=== PATIENT | male | born 1985 | race Caucasian/White ===

== ENCOUNTER 2025-04-03 18:37 | Emergency (ER) | payer MEDICARE, MEDICAID, SELFPAY ==
[2025-04-03 18:37] VITALS: BP 145/97; PULSE 157; RESP 40; TEMP 37; O2SAT 100; BMI 25.1
--- NOTE | 2025-04-03 18:50 | EKG12_ITS ---
Test Reason : DYSRHYTHMIA Blood Pressure : */* mmHG Vent. Rate : 122 BPM Atrial Rate : 122 BPM P-R Int : 150 ms QRS Dur : 98 ms QT Int : 282 ms P-R-T Axes : 56 44 42 degrees QTcB Int : 401 ms Sinus tachycardia Otherwise normal ECG Confirmed by SIDDHARTHA TRIPP, EDY ([id number]), assignment editor VANIA OSEI ([id number]) on 04/07/2025 6:30:51 AM Referred By: Confirmed By: EDY CARL MD
--- NOTE | 2025-04-03 18:51 | EX.ED.DYSGE1 ---
HPI History of Present Illness Chief Complaint: Overdose Detail of Chief Complaint: Illicit drug use Informant: patient Narrative Narrative: Patient presents to the emergency department after using what he thought was methamphetamines that he snorted a line out. This occurred about an hour and 20 minutes ago. He feels like his heart is racing and he is got some chest tightness. He thought his pupils looked weird and his right 1 was not reactive. Denies falls or injuries. He states he had been clean from any drug use for about 2 years or so. Drinks alcohol occasionally. Patient is a smoker. [facility] Medical History (Updated 04/03/25 @ 21:[address] Navi Ramirez, DO) Chest pain Hypertension Schizoaffective disorder Bipolar disorder Allergy/AdvReac Type Severity Reaction Status Date / Time sulfamethoxazole (From Allergy Severe Anaphylaxis Verified 04/03/25 18:41 Bactrim) trimethoprim (From Bactrim) Allergy Severe Anaphylaxis Verified 04/03/25 18:41 Social History Smoking Status: Current some day smoker tobacco type: cigarettes ROS ROS ED Review of Systems ROS Unobtainable: other Constitutional Constitutional ED: Reports lethargy; Denies chills, fever(s), sweats or weight loss Eyes Eyes: Denies blurry vision, change in vision or diplopia ENT ENT ED: Denies rhinorrhea or sore throat Cardiovascular Cardiovascular: Reports chest pain and racing heartbeat; Denies orthopnea Respiratory/Chest Respiratory/Chest: Reports dyspnea; Denies cough, dyspnea on exertion, orthopnea or sputum Gastrointestinal Gastrointestinal: Denies abdominal pain, diarrhea, nausea or vomiting Genitourinary Genitourinary ED: Denies dysuria, hematuria or urinary frequency Musculoskeletal Musculoskeletal: Denies arthralgias, back pain, myalgias or neck pain Integumentary Denies abscess, Abrasions or rash Neurologic Neurologic: Denies headache(s) or weakness Psychiatric Psychiatric: Denies anxiety, depression or suicidal thoughts Endocrine Endocrinology: Denies polydipsia, polyphagia or polyuria Hematologic/Lymphatic Hematologic/Lymphatic: Denies easy bleeding, easy bruising or lymphadenopathy Allergic/Immunologic Allergic/Immunologic ED: Denies mouth swelling, tongue swelling or urticaria EXAM Physical Exam Const Vital Signs: 04/03/25 18:37 Temperature 98.6 F Temperature Source Oral Pulse Rate 157 H Respiratory Rate 40 H Blood Pressure 145/97 H Blood Pressure Mean 113 Pulse Ox 100 Oxygen Delivery Method Room Air Positive well nourished and well developed General Appearance ED: well developed and NAD HEENT Reports TM's clear and moist mucous membranes HEENT Narrative: Dilated pupils bilaterally at 6 mm and reactive. normocephalic and atraumatic; Negative for trauma or tenderness Tympanic Membrane ED: Yes TM's clear Eyes PERRL and EOMs intact bilaterally General Eye ED: Negative for pale conjunctiva or scleral icterus Neck no lymphadenopathy, supple and no JVD General: Negative for tenderness Chest Wall inspection of chest normal and palpation of chest normal Chest: Negative for tenderness Resp normal respiratory effort and clear to auscultation bilaterally Effort and Inspection: Negative for respiratory distress or pain with movement Auscultation: Negative for rhonchi, wheezes or diminished lung sounds Cardio regular rhythm, S1 normal heart sound, S2 normal heart sound and no murmurs; Negative for regular rate Rate: tachycardic Peripheral Pulses: pulses 2+ throughout GI normal to inspection, nondistended, normoactive bowel sounds, soft to palpation, non-tender, non-distended and no masses Back/Spine no CVA tenderness and no thoracic nor lumbar tenderness Extremity normal to inspection General Extremety ED: Negative for edema General Extremity: Negative for edema Neuro oriented x3, CN's II-XII intact bilaterally, no sensory deficits noted and gait normal Sensorium / Orientation: awake, alert, oriented to person, oriented to place and oriented to time Motor Exam: strength 5/5 throughout and strength abnormal Psych mental status grossly normal Skin no rashes or lesions noted and no wounds MDM MDM MDM Narrative Medical decision making narrative: Patient presents the emergency department after this morning a line of what he thought was methamphetamines. Feeling anxious and jittery and not feeling well. He used to do meth years ago. But has been clean for over 2 years. IV established. He was given 2 mg of Ativan IV. CBC with differential obtained showed white count of 8.9 with hemoglobin 14.9 and platelet count 377. Chemistries unremarkable. Alcohol was less than 10. Talk screen ordered however patient was not able to give a urine sample. Patient felt markedly improved after treatment. He is asking to be discharged to home. He does not want to stay for his talk screen. I did advise him that he should not drive or work for the next 24 hours. Advised him to avoid illicit drug use. Patient will find a ride home from family member Lab Data Attestation: I reviewed the patient's lab results. Labs: Laboratory Results - last 24 hr 04/03/25 18:46 WBC 8.9 RBC 5.10 Hgb 14.9 Hct 43.4 MCV 85.1 MCH 29.2 MCHC 34.3 RDW Std Deviation 39.0 RDW Coeff of [place] 12.5 Plt Count 377 MPV 8.6 Immature Gran % (Auto) 0.100 Neut % (Auto) 54.6 Lymph % (Auto) 32.6 Sutter % (Auto) 10.8 H Eos % (Auto) 1.0 Baso % (Auto) 0.9 Absolute Neuts (auto) 4.9 Absolute Lymphs (auto) 2.90 Nucleated RBC % 0 Sodium 141 Potassium 3.5 Chloride 100 Carbon Dioxide 21.7 Anion Gap 19 H BUN 13 Creatinine 1.29 H Estim Creat Clear Calc 86.89 Est GFR (MDRD) Non-Af 72 BUN/Creatinine Ratio 10.2 Glucose 117 H Calcium 10.5 Ethyl Alcohol < 10.1 EKG Initial EKG: Attestation: I personally reviewed and interpreted this EKG as follows: Comments: Sinus rhythm with rate of 122 bpm with no acute ST segment change Discharge Plan Triage Chief Complaint: Overdose ED Provider: Navi Ramirez Dx/Rx/DC Orders Clinical Impression: Methamphetamine abuse Instructions: ED Drug Abuse Primary Care Provider: Care Physician,No Primary Referrals: Care Physician,No Primary [Primary Care Provider, Medical] Activity Restrictions/Additional Instructions: Please do not drive for the next [address] any type of heavy equipment or machinery. Print Language: Guamanian Disposition Disposition: Home, Self Care
[2025-04-03 19:17] LABS: Hematocrit 43.4 % (40-54); Hemoglobin 14.9 g/dL (13.0-16.5); Immature Granulocytes Count 0.010 X10^3/uL (0.0-0.0); Mean Corp Hgb Conc 34.3 g/dL (32-36); Mean Corpuscular Volume 85.1 fL (80-94); Mean Platelet Vol. 8.6 fl (6.2-12.0); NRBC Flagged by Analyzer 0 % (0-5); Platelet Count 377 K/mm3 (150-450); RBC Distribution Width CV 12.5 % (11.6-14.6); RBC Distribution Width SD 39.0 fl (35.1-43.9); Red Blood Count 5.10 M/mm3 (4.6-6.2); White Blood Count 8.9 K/mm3 (4.4-11.0)
[2025-04-03 19:20] LABS: Alcohol, Blood (Medical)-Serum < 10.1 mg/dL (<=10.0)
[2025-04-03 19:23] LABS: Anion Gap 19 (5-15); BUN 13 mg/dL (4-19); BUN/Creat Ratio 10.2 RATIO (10-20); Calcium,Total 10.5 mg/dL (7.6-11.0); Carbon Dioxide 21.7 mmol/L (21.0-32.0); Chloride 100 mmol/L (98-108); Estimated Creatinine Clearance 86.89 ml/min (50-250); Glucose 117 mg/dL (70-99); Potassium 3.5 mmol/L (3.3-5.1)
--- NOTE | 2025-04-03 20:22 | ED.RN ---
Patient is wanting to [facility]AMA. Dr. Ramirez notified. Patient admits to doing a line of methamphetamine. Patient was also given Ativan here. He states that he wants to leave and go to work. He drives a plow truck. Dr. Ramirez advised the patient that he was not allowed to go to work. Patient given water to see if he was able to urinate for a tox screen.
--- NOTE | 2025-04-03 20:47 | ED.RN ---
Patient given water. This nurse asked if he had a ride home and he stated that his dad or his brother would. He was waiting for a call back from them.
== END 2025-04-03 21:23 | disposition home or self-care (01) ==
PROVIDERS: Emergency Provider Emergency Medicine; Visit Provider Emergency Medicine
DX: F15.10 Other stimulant abuse, uncomplicated (principal); F25.9 Schizoaffective disorder, unspecified; F17.210 Nicotine dependence, cigarettes, uncomplicated
CPT/HCPCS: 80048; 82077; 85025; 93005; 96374; 96376; 99283; A4216

== ENCOUNTER 2025-04-18 14:17 | Emergency (ER) | payer MEDICARE, MEDICAID, SELFPAY ==
[2025-04-18] VITALS (8 sets, daily range): BP systolic 124–167; BP diastolic 86–106; PULSE 83–112; RESP 11–25; TEMP 36.3; O2SAT 90–100; BMI 24.7
--- NOTE | 2025-04-18 14:28 | CT_ITS ---
PROCEDURE: SINUS/FACIAL BONE 04/18/2025 REASON FOR EXAM: FACIAL TRAUMA TECHNIQUE: Procedure Code: CTSI Modality: CT Procedure: SINUS/FACIAL BONE Coronal and Sagittal reconstruction series were provided. One or more dose reduction techniques were used (e.g., Automated exposure control, adjustment of the mA and/or kV according to patient size, use of iterative reconstruction technique). RADIATION DOSE SUMMARY: CTDlvol: 19.12 mGy DLP: 1433.9 mGycm COMPARISON: None. FINDINGS: Facial bones: No acute bony abnormalities. Mandible: No acute bony abnormalities. Orbits: No acute orbital abnormalities. Paranasal sinuses:Clear. CT/Sinus/Facial Bone IMPRESSION: No acute injury to the facial bones. Reading Location: [id number]
--- NOTE | 2025-04-18 14:28 | CT_ITS ---
PROCEDURE: BRAIN/HEAD WITHOUT CONTRAST 04/18/2025 REASON FOR EXAM: VISION CHANGES TECHNIQUE: Procedure Code: CTBR Modality: CT Procedure: BRAIN/HEAD WITHOUT CONTRAST Coronal and Sagittal reconstruction series were provided. One or more dose reduction techniques were used (e.g., Automated exposure control, adjustment of the mA and/or kV according to patient size, use of iterative reconstruction technique. RADIATION DOSE SUMMARY: DLP: 354 mGycm COMPARISON: None FINDINGS: There is no acute infarct, intracranial hemorrhage, or mass effect. There is no hydrocephalus or significant midline shift. Prominent posterior fossa extra-axial space. No acute, depressed calvarial fractures. No large scalp hematomas. The paranasal sinuses are clear. CT/Brain/Head without Contrast IMPRESSION: No acute intracranial process. Consider MR if symptoms persist. Reading Location: [facility]
--- NOTE | 2025-04-18 14:28 | CT_ITS ---
PROCEDURE: CTA HEAD AND NECK W/ CONTRAST 04/18/2025 REASON FOR EXAM: STROKE LIKE SYMPTOMS TECHNIQUE: Procedure Code: CTCTA.HDNCK Modality: CT Procedure: CTA HEAD AND NECK W/ CONTRAST Multiplanar Sagittal and Coronal images were obtained. CONTRAST: Isovue 370 VOLUME: 75 mL One or more dose reduction techniques were used (e.g., Automated exposure control, adjustment of the mA and/or kV according to patient size, use of iterative reconstruction technique). RADIATION DOSE SUMMARY: CTDlvol: 19.12 mGy DLP: 1433.9 mGycm COMPARISON: None. FINDINGS: Aortic Arch: Normal size and branching pattern. No significant atherosclerotic plaque. Brachiocephalic and Subclavians: Unremarkable RIGHT Carotid: Right CCA: Unremarkable. Right ICA: Unremarkable. Right ECA: Unremarkable. LEFT Carotid: Left CCA: Unremarkable. Left ICA: Unremarkable. Left ECA: Unremarkable. Vertebrals: Codominant. Arise from the subclavians. Both vertebrals form the basilar. RIGHT Vertebral: Unremarkable. LEFT Vertebral: Unremarkable. Anatomy: [place] anatomy is normal. Aneurysm or avm: No intracranial aneurysms or large vascular malformations are identified. Anterior cerebral arteries: Unremarkable: Middle cerebral arteries: Unremarkable. Basilar artery: Unremarkable. Posterior cerebral arteries: Unremarkable. Other major branches of the posterior circulation: Unremarkable. Major venous structures: Unremarkable. Other findings: Neck: No lymphadenopathy. Lungs: Lung apices are clear. Bones: Bones are unremarkable. CT/CTA Head AND Neck W/ Contrast IMPRESSION: No hemodynamically significant stenosis in the head and neck. Reading Location: [facility]
--- NOTE | 2025-04-18 14:28 | EKG12_ITS ---
Test Reason : NEURO S/SX Blood Pressure : */* mmHG Vent. Rate : 108 BPM Atrial Rate : 108 BPM P-R Int : 124 ms QRS Dur : 100 ms QT Int : 352 ms P-R-T Axes : 66 49 52 degrees QTcB Int : 471 ms Sinus tachycardia Otherwise normal ECG Confirmed by Kash Looney ([id number]), market editor ALEXIA MONGE ([id number]) on 04/22/2025 6:17:36 AM Referred By: Confirmed By: Kash Looney
--- OUTSIDE RECORDS SUMMARY | 2025-04-18 14:30 | XMS RPT_ITS | CCD ---
Author Organization [facility] Care Team Providers Care Hospice Registered Nurse Name Role Phone PROVIDER, UNKNOWN Attending Unavailable PROVIDER, UNKNOWN Admitting Unavailable Unavailable Primary Care Provider Unavailabl e Kyrie Prince DO Primary Care Provider Kyrie Prince DO Primary Care Provider Maxx GRUBBS, Stefania Unavailable [phone] PROVIDER, UNKNOWN Primary Care Unavailable Kyrie Prince DO Primary Care Provider Chuy Haney MD Primary Care Provider KYRIE PRINCE Attending Unavailable KYRIE PRINCE Primary Care Unavailable Allergies Allergy Classification Reported Allergen(s) Allergy Type Date of Onset Reaction(s) Facility (1 source) Sulfonamides (Antibiotic); Translations: [SULFA ANTIBIOTICS] Propensity to adverse reactions to drug (disorder) 04-24-19 18 [facility] Sulfamethoxazole / Trimethoprim; Translations: [SULFAMETHOXAZOLE-T RIMETHOPRIM] Drug Allergy 09-05-19 19 Other: See Comments [facility] Medications Current Medications Medication Drug Class(es) Dates Sig (Normalized) Sig (Original) [id number] 200 actuat albuterol 0.09 mg/actuat metered dose inhaler (15 sources) beta2-Adrenergic Agonist Start: 03-03-2022 take 2 puff(s) by mouth every four to six hours as needed albuterol HFA (PROVENTIL HFA, VENTOLIN HFA) 90 mcg/actuation inhaler INHALE 2 PUFFS BY MOUTH EVERY 4 TO 6 HOURS NEEDED 03/03/2022 Active Comment on above: INHALE 2 PUFFS BY [facility] EVERY 4 TO 6 HOURS NEEDED amoxicillin 875 mg / clavulanate 125 mg oral tablet (1 source) Penicillin-class Antibacterial Start: 05-26-2022 End: 06-02-2022 take 1 tablet by mouth every twelve hours amoxicillin-clavul anic acid (AUGMENTIN) 875-125 mg per tablet Indications: Diverticulitis Take 1 tablet by mouth every 12 hours for 7 days. 14 tablet 0 05/26/2022 06/02/2022 Active Comment on above: Take 1 tablet by lorenzo th every 12 hours for 7 days. amphetamine aspartate 5 mg / amphetamine sulfate 5 mg / dextroamphetamine saccharate 5 mg / dextroamphetamine sulfate 5 mg oral tablet (7 sources) Central Nervous System Stimulant Start: 2024 take 0.5 tablet by mouth every twelve hours dextroamphetamine- amphetamine (ADDERALL) 20 mg tablet Take 0.5 tablets by mouth every 12 hours. 2024 Active 24 hr buPROPion hydrochloride 300 mg extended release oral tablet (20 sources) Aminoketone buPROPion XL (WELLBUTRIN XL) 150 mg 24 hr tablet Take 150 mg by mouth once daily. Taking along with 300 mg for a total of 450 mg daily Active take 1 tablet by mouth once maria esther y buPROPion XL (WELLBUTRIN XL) 300 mg 24 hr tablet Take 300 mg by mouth once daily. Active Comment on above: Take 300 mg by mouth once daily. Take 150 mg by mouth once daily. Taking along with 300 mg for a total of 450 mg daily cariprazine 4.5 mg oral capsule (7 sources) Atypical Antipsychotic Start: 02-08-20 take 1 capsule by mouth once VRAYLAR 4.5 mg capsule Take 1 capsule by mouth every afternoon. 02/08/2024 Active donepezil hydrochloride 5 mg oral tablet (10 sources) Start: 10-06-19 23 take 1 tablet by mouth once daily at bedtime donepezil (ARICEPT) 5 mg tablet Take 5 mg by mouth daily at bedtime. 10/05/2022 Active Comment on above: Take 5 mg by mouth d aily at bedtime. escitalopram 10 mg oral tablet (7 sources) Serotonin Reuptake Inhibitor Start: 02-28-20 24 take 1 tablet by mouth once daily escitalopram oxalate (LEXAPRO) 10 mg tablet Take 10 mg by mouth once daily. 02/28/2024 Active hydrOXYzine hydrochloride 25 mg oral tablet (16 sources) Antihistamine take 1 tablet by mouth every eight hours as needed hydrOXYzine HCl (ATARAX) 25 mg tablet Take 25 mg by mouth three times daily as needed. Active Comment on above: Take 25 mg by mouth three times daily as needed. lurasidone hydrochloride 20 mg oral tablet (20 sources) Atypical Antipsychotic Start: 11-02-19 lurasidone (LATUDA) 20 mg tablet once daily. 11/01/2022 Active Start: 08-05-2022 lurasidone (LA TUDA) 80 mg tablet once daily. 08/05/2022 Active End: 07-26-2022 lurasidone (LATUDA) 80 mg ta blet Take 80 mg by mouth. Pt states is taking 100mg 0 07/26/2022 Discontinued End: 07-26-2022 lurasidone (LATUDA) 20 mg ta blet 1 tablet in the evening with food 0 07/26/2022 Discontinued Comment on above: Take 80 mg by mouth. Pt states is taking 100mg 1 tablet in the even ing with food once daily. 24 hr nicotine 0.292 mg/hr transdermal system (12 sources) Cholinergic Nicotinic Agonist Start: 05-26-19 End: 08-25-19 nicotine (NICODERM) 7 mg/24 hr Apply 1 Patch as directed every 24 hours. 30 Patch 2 05/26/2022 Active Comment on above: Apply 1 Patch as dir ected every 24 hours. omeprazole 40 mg delayed release oral capsule (17 sources) Proton Pump Inhibitor Start: 02-26-20 take 1 capsule by mouth twice daily before mealtime omeprazole (PRILOSEC) 40 mg capsule Indications: Gastroesophageal reflux disease with esophagitis without hemorrhage Take 1 capsule by mouth two times a day before meals. 60 capsule 3 02/26/2024 Active Start: 09-27-2022 take 1 capsule by mo ut twice daily before mealtime omeprazole (PRILOSEC) 40 mg capsule Indications: Gastroesophageal reflux disease with esophagitis without hemorrhage Take 1 capsule by mouth twice daily before meals. 60 capsule 3 09/27/2022 Active Start: 05-16-2022 End: 12-14-2022 take 1 capsule by mouth once daily omeprazole (PRILOSEC) 40 mg capsule Indications: Gastroesophageal reflux disease with esophagitis without hemorrhage Take 1 capsule by mouth once daily. 90 capsule 1 06/17/2022 07/26/2022 Discontinued Comment on above: Take 1 capsule by mo uth once daily. Take 1 capsule by mo uth twice daily before meals. 24 hr QUEtiapine 300 mg extended release oral tablet (16 sources) Atypical Antipsychotic take 1 tablet by mouth once daily at bedtime QUEtiapine XR (SEROQUEL XR) 300 mg 24 hr tablet Take 300 mg by mouth daily at bedtime. Active Comment on above: Take 300 mg by mouth daily at bedtime. traZODone hydrochloride 50 mg oral tablet (7 sources) Serotonin Reuptake Inhibitor Start: 01-12-20 take 1 tablet by mouth once daily at bedtime traZODone (DESYREL) 50 mg tablet Take 50 mg by mouth daily at bedtime. 01/12/2024 Active Completed/Discontinued Medications Medication Drug Class(es) Dates Sig (Normalized) Sig (Original) atomoxetine 25 mg oral capsule (6 sources) Norepinephrine Reuptake Inhibitor Start: 06-09-2022 End: 07-26-2022 take 1 capsule by mouth once daily in the morning atomoxetine (STRATTERA) 25 mg capsule Take 25 mg by mouth every morning. 0 06/09/2022 07/26/2022 Discontinued End: 06-17-2022 take 1 capsule by mouth once daily atomoxetine (STRATTERA) 10 mg capsule Take 10 mg by mouth once daily. 0 06/17/2022 Discontinued (Course of therapy completed) Comment on above: Take 10 mg by mouth once daily. Take 25 mg by mouth every morning. perphenazine 2 mg oral tablet (3 sources) Phenothiazine Start: 06-10-19 End: 07-27-19 take 1 tablet by mouth twice daily perphenazine 2 mg tablet Take 2 mg by mouth twice daily. 0 06/10/2022 07/26/2022 Discontinued Comment on above: Take 2 mg by mouth t wice daily. prazosin 1 mg oral capsule (4 sources) alpha-Adrenergic Debbie Start: 05-01-19 End: 07-27-19 prazosin (MINIPRESS) 1 mg cap daily at bedtime. 0 05/01/2022 07/26/2022 Discontinued Comment on above: daily at bedtime. sucralfate 1000 mg oral tablet (5 sources) Aluminum Complex Start: 05-16-19 End: 07-27-19 take 1 tablet by mouth four times daily sucralfate (CARAFATE) 1 gram tablet Take 1 tablet by mouth four times daily. 120 tablet 3 05/16/2022 07/26/2022 Discontinued Comment on above: Take 1 tablet by lorenzo th four times daily. Problems Active Problems Problem Classification Problem Date Documented Date Episodic/Chronic Abdominal pain (1 source) Indigestion; Translations: [Epigastric pain] Episodic Acute and unspecified renal failure (1 source) Acute injury of kidney; Translations: [Acute kidney failure, unspecified] Episodic Chronic kidney disease (3 sources) Chronic kidney disease stage 3; Translations: [Stage 3 chronic kidney disease, unspecified whether stage 3a or 3b CKD (HCC)] Chronic Diverticulosis and diverticulitis (1 source) Diverticulitis; Translations: [Diverticulitis of intestine, part unspecified, without perforation or abscess without bleeding] Chronic Esophageal disorders (14 sources) Gastroesophageal reflux disease; Translations: [Gastro-esophageal reflux disease without esophagitis] Onset: Chronic Essential hypertension (1 source) Essential hypertension; Translations: [Essential (primary) hypertension] Chronic Gastrointestinal hemorrhage (1 source) Hematochezia; Translations: [Melena] 03-01-2024 Episodic Genitourinary symptoms and ill-defined conditions (1 source) Disorder of the urinary system; Translations: [Other symptoms and signs involving the genitourinary system] 03-01-2024 Episodic Immunizations and screening for infectious disease (6 sources) Patient encounter status; Translations: [Encounter for immunization] Episodic Mood disorders (17 sources) Bipolar disorder; Translations: [Bipolar disorder, unspecified] Onset: 11-05-2020 Chronic Nausea and vomiting (1 source) Nausea and vomiting; Translations: [Nausea with vomiting, unspecified] Episodic Other diseases of kidney and ureters (1 source) Hyperparathyroidism due to renal insufficiency; Translations: [Secondary hyperparathyroidism of renal origin] Chronic Other gastrointestinal disorders (1 source) Altered bowel function; Translations: [Change in bowel habit] Episodic Other gastrointestinal disorders (1 source) Diarrhea; Translations: [Diarrhea, unspecified] Episodic Other gastrointestinal disorders (1 source) Heartburn; Translations: [Heartburn] 01-18-2023 Episodic Other male genital disorders (2 sources) Finding of sensation of testes; Translations: [Testicular pain, unspecified] 11-29-2022 Episodic Other nutritional; endocrine; and metabolic disorders (1 source) Obese class I; Translations: [Obesity, unspecified] Chronic Other screening for suspected conditions (not mental disorders or infectious disease) (2 sources) Serum creatinine raised; Translations: [Other specified abnormal findings of blood chemistry] Episodic Other skin disorders (1 source) Eruption; Translations: [Rash and other nonspecific skin eruption] Episodic Past or Other Problems Problem Classification Problem Date Documented Da te Episodic/Chronic Inflammation; infection of eye (except that caused by tuberculosis or sexually transmitteddisease) (16 sources) Welders' keratitis; Translations: [Photokeratitis, bilateral] Onset: 06-18-2021 06-18-2021 Episodic Residual codes; unclassified (16 sources) Tobacco user; Translations: [Tobacco use] Onset: 11-14-2018 11-05-2020 Episodic Results Test Name Value Interpretation Reference Range Facil ity ALLIED HEALTHon 07-10-2024 ALLIED HEALTH HNO ID: [id number] Author: JANE SCOTT CT Service: Radiology Author Type: Technologist Type: Allied Health Filed: 07/10/2024 20:09 Note Text: Radiology Service Progress Note PATIENT NAME: Mark Stephenson DATE OF SERVICE: July 10, 2024 TIME: 8:09 PM PATIENT IDENTITY VERIFICATION COMPLETED USING TWO (2) IDENTIFIERS: Name and Date of confirmed by patient verbally and Name and Date of confirmed by identification band. FALL SCREENING: Has the patient had 2 falls in the last year or 1 fall with injury or currently using an Ambulatory Assistive Device (Walker, Cane, Wheelchair, Crutches, etc.)? Emergency Room Patient: Screened in ED PATIENT GENDER DATA: Assigned male at PATIENT RELEVANT IMPLANT DATA REVIEWED: Not Applicable PATIENT PRESENTS WITH AN IMPLANTABLE OR ATTACHED ASSOCIATE FINANCIAL ADVISOR: No RADIOLOGY DEPARTMENT: CT; Exam(s) Completed: Abdomen/Pelvis PERIPHERAL IV DATA: Not applicable SIGNED BY: HOWARD Hebert July 10, 2024 8:09 PM [facility] CT FLANK WO IVCONon 07-11-19 CT FLANK WO IVCON * * *Final Report* * * DATE OF EXAM: Jul 10 2024 8:22PM [facility] [place] [place] FLANK WO IVCON / PROCEDURE REASON: Flank pain, kidney stone suspected * * * * Physician Interpretation * * * * EXAMINATION: CT ABDOMEN AND PELVIS WITHOUT IV CONTRAST (Renal stone protocol) CLINICAL HISTORY: RIGHT flank pain. TECHNIQUE: Non-contrast imaging of the abdomen and pelvis was performed through the urinary tract. Study performed without intravenous or oral contrast to evaluate for urinary tract calculus. MQ: [id number] Contrast: IV contrast: None Oral contrast: None CT Radiation dose: Integrated dose-length product (DLP) for this visit = 186 mGy*cm. CT Dose Reduction Employed: Automated exposure control(AEC) and iterative recon COMPARISON: None. RESULT: Limited by significant motion artifact Limitations: Unenhanced imaging is limited for the evaluation of some renal and other intra-abdominal and pelvic pathology. Urinary Tract: Right kidney and ureter: 3 mm calculus either within the right UVJ or just into the urinary bladder. Mild upstream hydronephrosis. No finding to suggest cyst or mass in the unenhanced kidney. Left kidney and ureter: No calculus. No hydronephrosis. No finding to suggest cyst or mass in the unenhanced kidney. Abdomen and Pelvis: Liver: Diffuse steatosis Biliary: Gallbladder is not seen. No ductal dilatation. Spleen: No splenomegaly. Pancreas: Unremarkable. Adrenals: Normal. GI Tract: No bowel dilation. Normal appendix. Lymph Nodes: No lymphadenopathy. Mesentery/peritoneum: No ascites. Vasculature: No abdominal aortic or iliac artery aneurysm. Pelvis: No mass or ascites. Bones and Soft Tissues: No acute abnormality. Small fat-containing umbilical hernia Lower thorax: Unremarkable. Localizer images: No additional findings. IMPRESSION: 3 mm calculus either within the right UVJ or just into the urinary bladder. Mild right-sided hydronephrosis Certified Personal Trainer: [facility] Transcribe Date/Time: Jul 10 2024 8:37P Dictated by : EMERSON BONILLA MD This examination was interpreted and the report reviewed and electronically signed by: EMERSON BONILLA MD on Jul 10 2024 8:42PM EST [id number] [facility] ED NOTEon 07-10-2024 ED NOTE HNO ID: [id number] Author: DONNA MORTON, RN Service: Nursing Author Type: Registered Nurse Type: ED Notes Filed: 07/10/2024 21:19 Note Text: called ED and told SILK CONDITIONER that they left, pt did not have an IV but family did not tell anyone that they left [facility] ED PROV NOTEon 07-10-2024 ED PROV NOTE HNO ID: [id number] Author: ASHLIE FRANCO APRN.FELICIA Service: Emergency Medicine Author Type: Nurse Practitioner Type: ED Provider Notes Filed: 07/10/2024 22:18 Note Text: 07/10/24 10:17 PM Patient was seen here in the emergency department for complaints of right flank pain, and urinary symptoms. He was seen by the virtual provider, who ordered routine labs, and a CT flank. Patient eloped prior to lab work however he did have CT completed, showing a 3 mm distal ureter stone. Patient was phoned, updated on results, says he feels improved, was advised to continue with adequate hydration to assist with passing of the stone. He understands if there is any worsening issues, he can follow-up with his primary care team, return to the emergency department. Patient verbalized understanding. Ashlie Franco APRN.ASHLIE PRIETO 07/10/24 2218 [facility] ED Triage Noteon 07-10-2024 ED Triage Note HNO ID: [id number] Author: MARILU CHAVARRIA DO Service: Emergency Medicine Author Type: Physician Type: ED Triage Notes Filed: 07/10/2024 20:04 Note Text: ED INTAKE NOTE Patient Name: Mark Stephenson Service Date: 07/10/24 BRIEF HPI: This is a 39 year old male who presents to the ED with: right back/flank pain, + dark urine/dribbling all week, started 45mins ago BRIEF EXAM: NAD Awake and Alert Non labored breathing INITIAL WORKUP AND DECISION MAKING: Orders Placed This Encounter CT FLANK WO IVCON COMP METABOLIC PANEL (BMP+LFT) LIPASE BLD Urinalysis w Microscopic, reflex Culture Provider examination performed via virtual platform with assistance from bedside clinician. SIGNATURE: Marilu Chavarria DO [facility] Keerthi 05-08-2024 MARY Telephone (AGGASTACC ) RAMARK Holly ([id number]) 1985 M Date Time Provider Department 05/08/24 [facility] PROVIDER HUAN During your visit today, we recorded the following information about you: Michelle Womack 05/08/2024 2:36 PM Signed Pt. Update 05.08.24- Gastro call spoke with pt. Said he is going to see his pc first then going to call for appt. Was sent email with phone numbers for pt. To call for appt. Note:Rectal bleeding Allergies As of Date: 05/08/2024 Noted Allergy Reaction BACTRIM (SULFAMETHOXAZOLE-TRIM ETH*09/04/2018 14 - Other: See Comments Date Reviewed: 03/01/2024 Reviewed by: Leanna Adams LPN - Fully Assessed Reason for Visit: Patient Update [1234] Prescriptions as of 05/08/2024 - VRAYLAR 4.5 mg capsule Take 1 capsule by mouth every afternoon. - dextroamphetamine-amph etamine (ADDERALL) 20 mg tablet Take 0.5 tablets by mouth every 12 hours. - traZODone (DESYREL) 50 mg tablet Take 50 mg by mouth daily at bedtime. - escitalopram oxalate (LEXAPRO) 10 mg tablet Take 10 mg by mouth once daily. - omeprazole (PRILOSEC) 40 mg capsule Take 1 capsule by mouth two times a day before meals. - donepezil (ARICEPT) 5 mg tablet Take 5 mg by mouth daily at bedtime. - lurasidone (LATUDA) 20 mg tablet once daily. - lurasidone (LATUDA) 80 mg tablet once daily. - buPROPion XL (WELLBUTRIN XL) 150 mg 24 hr tablet Take 150 mg by mouth once daily. Taking along with 300 mg for a total of 450 mg daily - albuterol HFA (PROVENTIL HFA, VENTOLIN HFA) 90 mcg/actuation inhaler INHALE 2 PUFFS BY MOUTH EVERY 4 TO 6 HOURS NEEDED - nicotine (NICODERM) 7 mg/24 hr Apply 1 Patch as directed every 24 hours. - buPROPion XL (WELLBUTRIN XL) 300 mg 24 hr tablet Take 300 mg by mouth once daily. - hydrOXYzine HCl (ATARAX) 25 mg tablet Take 25 mg by mouth three times daily as needed. - QUEtiapine XR (SEROQUEL XR) 300 mg 24 hr tablet Take 300 mg by mouth daily at bedtime. 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 He is now on her schedule for rectal bleeding and should be scheduled w/[facility] for evaluation. Attempted to call patient at the listed number and unable to reach, could not leave a message. 2 attempts made. Sami Tariq CMA May 06, 2024 1:57 PM Allergies As of Date: 05/06/2024 Noted Allergy Reaction BACTRIM (SULFAMETHOXAZOLE-TRIM ETH*09/04/2018 14 - Other: See Comments Date Reviewed: 03/01/2024 Reviewed by: Leanna Adams LPN - Fully Assessed Reason for Visit: Appointment [186] Cmt: Rectal bleeding Prescriptions as of 05/08/2024 - VRAYLAR 4.5 mg capsule Take 1 capsule by mouth every afternoon. - dextroamphetamine-amph etamine (ADDERALL) 20 mg tablet Take 0.5 tablets by mouth every 12 hours. - traZODone (DESYREL) 50 mg tablet Take 50 mg by mouth daily at bedtime. - escitalopram oxalate (LEXAPRO) 10 mg tablet Take 10 mg by mouth once daily. - omeprazole (PRILOSEC) 40 mg capsule Take 1 capsule by mouth two times a day before meals. - donepezil (ARICEPT) 5 mg tablet Take 5 mg by mouth daily at bedtime. - lurasidone (LATUDA) 20 mg tablet once daily. - lurasidone (LATUDA) 80 mg tablet once daily. - buPROPion XL (WELLBUTRIN XL) 150 mg 24 hr tablet Take 150 mg by mouth once daily. Taking along with 300 mg for a total of 450 mg daily - albuterol HFA (PROVENTIL HFA, VENTOLIN HFA) 90 mcg/actuation inhaler INHALE 2 PUFFS BY MOUTH EVERY 4 TO 6 HOURS NEEDED - nicotine (NICODERM) 7 mg/24 hr Apply 1 Patch as directed every 24 hours. - buPROPion XL (WELLBUTRIN XL) 300 mg 24 hr tablet Take 300 mg by mouth once daily. - hydrOXYzine HCl (ATARAX) 25 mg tablet Take 25 mg by mouth three times daily as needed. - QUEtiapine XR (SEROQUEL XR) 300 mg 24 hr tablet Take 300 mg by mouth daily at bedtime. 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] 06/18/2021 Gastroesophageal reflux disease with esophagiti*01/18/2023 Encounter Status:Closed by SAMI TARIQ on 1/13/25 [facility] CNOVon 03-01-2024 CNOV Office Visit (FAMDNA ) RAMARK Holly ([id number]) 1985 M Date Time Provider Department 03/01/24 10:40 AM KYRIE PRINCE During your visit today, we recorded the following information about you: Temperature Pulse Respiration Blood pressure 98.6 degrees 103/minute 16/minute 119/74 Weight 89.9 kg Kyrie Prince DO 04/02/2024 11:56 AM Signed 39 year old male presenting for multiple I have fully reviewed the past medical, surgical, social and family history and updated the Histories section of [facility]. Blood in stool chronically bright red happened yesterday occurrs every week or so started after colonoscopy last year Problems with starting urine stream pain Is able to urinate currently Current Outpatient Medications on File Prior to Visit: Current Outpatient Medications Medication Sig Dispense Refill VRAYLAR 4.5 mg capsule Take 1 capsule by mouth every afternoon. dextroamphetamine-amph etamine (ADDERALL) 20 mg tablet Take 0.5 tablets by mouth every 12 hours. traZODone (DESYREL) 50 mg tablet Take 50 mg by mouth daily at bedtime. omeprazole (PRILOSEC) 40 mg capsule Take 1 capsule by mouth two times a day before meals. 60 capsule 3 buPROPion XL (WELLBUTRIN XL) 150 mg 24 hr tablet Take 150 mg by mouth once daily. Taking along with 300 mg for a total of 450 mg daily albuterol HFA (PROVENTIL HFA, VENTOLIN HFA) 90 mcg/actuation inhaler INHALE 2 PUFFS BY MOUTH EVERY 4 TO 6 HOURS NEEDED hydrOXYzine HCl (ATARAX) 25 mg tablet Take 25 mg by mouth three times daily as needed. escitalopram oxalate (LEXAPRO) 10 mg tablet Take 10 mg by mouth once daily. (Patient not taking: Reported on 03/01/2024) donepezil (ARICEPT) 5 mg tablet Take 5 mg by mouth daily at bedtime. (Patient not taking: Reported on 03/01/2024) lurasidone (LATUDA) 20 mg tablet once daily. (Patient not taking: Reported on 03/01/2024) lurasidone (LATUDA) 80 mg tablet once daily. (Patient not taking: Reported on 03/01/2024) nicotine (NICODERM) 7 mg/24 hr Apply 1 Patch as directed every 24 hours. 30 Patch 2 buPROPion XL (WELLBUTRIN XL) 300 mg 24 hr tablet Take 300 mg by mouth once daily. (Patient not taking: Reported on 03/01/2024) QUEtiapine XR (SEROQUEL XR) 300 mg 24 hr tablet Take 300 mg by mouth daily at bedtime. (Patient not taking: Reported on 03/01/2024) No current facility-administered medications for this visit. ALLERGIES Allergen Reactions Bactrim [Sulfametho* Other: See Comments No past surgical history on file. Social history reviewed in [employer]. REVIEW OF SYSTEMS: Constitutional: Denies fever, denies chills, denies fatigue Head: Denies headache Eyes: Denies changes in vision or blurry vision Ears/Nose/Throat: Denies sore throat, denies rhinorrhea Musculoskeletal: Denies joint pain, denies myalgias Abd: No abd pain, no vomiting, no diarrhea, no nausea Skin/Breast: Denies rash or lesions Cardiovascular: Denies chest pain, denies palpitations, denies LE edema Respiratory: Denies cough, denies SOB, denies wheezing Neurological: Denies numbness, denies tingling, denies weakness PHYSICAL EXAMINATION: General appearance: Well appearing, alert, in no acute distress, well-hydrated, well nourished. Skin: no suspicious rashes or lesions Head: Normocephalic, atraumatic Eyes: Anicteric sclera. Pupils are equally round and reactive to light. Extraocular movements are intact. Ears: External ears normal, canals clear Nose/Sinuses: Nares normal, septum midline, mucosa normal, Oropharynx: Lips, mucosa, and tongue normal, good dentition, no pharyngeal erythema or exudates Neck: Supple, no adenopathy Lungs: Lungs clear to auscultation. No wheezing, rhonchi, rales. Heart: RRR without murmur, gallop, or rubs. Abdomen: Normal abdominal exam, Abdomen soft, non-tender. No masses Extremities: No deformities, no edema, no cyanosis. Musculoskeletal: No joint swelling, no deformity Neuro: Gait normal. Speech intact ASSESSMENT/PLAN: 1. Urinary problem - ICD9: V47.4, ICD10: R39.89 (primary diagnosis) - CONSULT TO UROLOGY 2. Blood in stool - ICD9: 578.1, ICD10: K92.1 - CONSULT TO GASTROENTEROLOGY No emergent complaints these are chronic needs specialist evaluation Discussed with patient red flag symptoms. Discussed risks and benefits of treatment plan. Pt understands to seek appropriate evaluation for new or worsening symptoms. Patient understands and agrees with plan, all concerns and questions addressed. Allergies As of Date: 03/01/2024 Noted Allergy Reaction BACTRIM (SULFAMETHOXAZOLE-TRIM ETH*09/04/2018 14 - Other: See Comments Date Reviewed: 03/01/2024 Reviewed by: Leanna Adams LPN - Fully Assessed Reason for Visit: Rectal Bleeding [202] Cmt: Lots of blood in the toilet and when wiping Urinary Problem [252] Cmt: Urgency, feels like he has to go but does not void very much. Primary Visit D (more content not included)... Normal [facility] EGD DIAGNOSTICon 01-18-2023 [facility] No Panel Informationon 11-30 [facility] US KIDNEY/BLADDERon 07-02-19 [facility] CBC panel Auto (Bld)on 05-16 Erythrocyte distribution width (RBC) [Ratio] 13.7 % 11.5 - 15.0 % [facility] Hematocrit (Bld) [Volume fraction] 39.9 % 39.0 - 51.0 % [facility] Hemoglobin (Bld) [Mass/Vol] 13.3 g/dL 13.0 - 17.0 g/dL [facility] MCH (RBC) [Entitic mass] 29.7 pg 26.0 - 34.0 pg [facility] MCHC (RBC) [Mass/Vol] 33.3 g/dL 30.5 - 36.0 g/dL [facility] MCV (RBC) [Entitic vol] 89.1 fL 80.0 - 100.0 fL [facility] Nucleated RBC (Bld) [#/Vol] <0.01 k/uL [facility] Platelet mean volume (Bld) [Entitic vol] 8.8 fL Low 9.0 - 12.7 fL [facility] Platelets (Bld) [#/Vol] 283 10*3/uL 150 - 400 k/uL [facility] RBC (Bld) [#/Vol] 4.48 10*6/uL 4.20 - 6.0 0 m/uL [facility] WBC (Bld) [#/Vol] 10.00 10*3/uL 3.70 - 11 .00 k/uL [facility] Comprehensive metabolic 2000 panelon 05-16-2022 Albumin [Mass/Vol] 4.7 g/dL 3.9 - 4.9 g/dL [facility] ALP [Catalytic activity/Vol] 78 U/L 38 - 113 U/L [facility] ALT [Catalytic activity/Vol] 45 U/L 10 - 54 U/L [facility] Anion gap [Moles/Vol] 11 mmol/L 9 - 18 mmol/L [facility] AST [Catalytic activity/Vol] 27 U/L 14 - 40 U/L [facility] Bilirubin [Mass/Vol] 0.2 mg/dL 0.2 - 1.3 mg/dL [facility] Calcium [Mass/Vol] 10.0 mg/dL 8.5 - 10. 2 mg/dL [facility] Chloride [Moles/Vol] 103 mmol/L 97 - 105 mmol/L [facility] CO2 [Moles/Vol] 28 mmol/L 22 - 30 mmol/L [facility] Creatinine [Mass/Vol] 1.80 mg/dL High 0.73 - 1.22 mg/dL [facility] Estimated Glomerular Filtration Rate 49 mL/min/1.73m Low >=60 mL/min/1.73m [facility] Glucose [Mass/Vol] 99 mg/dL 74 - 99 mg/dL [facility] Potassium [Moles/Vol] 4.2 mmol/L 3.7 - 5.1 mmol/L [facility] Protein [Mass/Vol] 7.2 g/dL 6.3 - 8.0 g/dL [facility] Sodium [Moles/Vol] 142 mmol/L 136 - 144 mmol/L [facility] Urea nitrogen [Mass/Vol] 16 mg/dL 9 - 24 mg/dL [facility] LIPASE [facility] 05-16-2022 Lipase [Catalytic activity/Vol] 53 U/L 16 - 61 U/L [facility] TSH [facility] 05-16-2022 TSH Qn 1.660 m[IU]/L 0.270 - 4.200 mIU/L [facility] CORONAVIRUS 2019 BY PCRon CORONAVIRUS 2019,PCR NOT DETECTED Normal Not Detected [facility] Comment on above: Result Comment: . This assay is designed to detect SARS-CoV-2 based on replication of specific regions of the RNA from the SARS-CoV-2 virus. A Not Detected result does not preclude 2019-nCoV infection since the adequacy of sample collection and/or low viral burden may result in presence of viral nucleic acids below the clinical sensitivity of this test method. Fact sheet for providers: https://www.fda.gov/media/786192/download Fact sheet for patients: https://www.fda.gov/media/804047/download This test has received FDA Emergency Use Authorization [EUA] and has been verified by [facility] ([facility]). This test is only authorized for the duration of time that circumstances exist to justify the authorization of the emergency use of in vitro diagnostic tests for the detection of SARS-CoV-2 virus and/or diagnosis of COVID-19 infection under section 564(b)(1) of the Act, 21 U.S.C. 360bbb-3(b)(1), unless the authorization is terminated or revoked sooner. [facility] is certified under CLIA-88 as qualified to perform high complexity testing. Testing is performed in the [facility] laboratories located at [address] [place] [address]. Performed By: #### C OV19 #### [address] [place] [address] DATE OF SYMPTOM ONSET [[id number]]? [id number] Normal [facility] Comment on above: Performed By: #### C OV19 #### [address] [place] [id number] Covid 19 Resultson Covid 19 Results NEGATIVE COVID-[address] Coronaviruses are common world-wide and are the cause of many common colds. SARS-COV2 is a new coronavirus that began circulating worldwide in 2019 so we are calling it COVID-19. It has been estimated that four out of five patients with COVID-19 will recover at home without the need for medical attention. Symptoms of COVID-19 include cough, fever, shortness of breath, loss of taste or smell and other flu-like symptoms including chills, sore muscles, sore throat, and headache. Severe illness is more common in older people and people with other health problems such as high blood pressure, obesity, and immune system problems. If the test is positive, you have COVID-19. You will be contacted by the ordering physicians office and instructed to remain on home isolation, in accordance with CDC guidelines. You may also be contacted by the [facility] to see if any of your close contacts may have been exposed to the virus and need to quarantine. If the test is negative, you likely do not have COVID-19 at this time, but you still may have a different illness that can spread to other people (like Influenza, or the Flu) and could still be at risk for getting COVID-19. We recommend that you stay away from other people to limit the spread of illness until your symptoms are improving and you are fever-free for 24 hours without the use of fever lowering medications such as acetaminophen or ibuprofen. No test is 100% accurate so if you are still concerned you may have COVID-19, talk to your doctor about the need to continue to stay away from others. Medicines Acetaminophen (Tylenol and others) is generally safe. Anti-inflammatory medications, such as Ibuprofen (Advil or Motrin) or Naproxen (Aleve) can also be used. Aijl-mhy-ivlhwxx cough and cold medicines can be used according to the instructions on the package. Some eemz-bud-pxjsmei medicines also contain acetaminophen. Make sure you are not taking more than your recommended dose For those not hospitalized, there is no specific treatment available for this illness. Antibiotics do not treat Coronaviruses. Follow-Up Follow up with your doctor by scheduling a virtual visit or consider follow-up at one of our urgent care fever clinics. If you are having difficulty breathing, or are very weak and having difficulty standing, this is a medical emergency. Call 911 or have someone take you to the nearest emergency room immediately. If possible, wear a facemask. Additional guidance from the CDC for patients who tested POSITIVE for COVID-19 How to isolate: Isolate yourself in a specific room at home and limit your contact with others. Use a separate bathroom from other members of the household, when possible. Leave home only to get essential medical care. Do not go to work, school or public areas. Avoid using public transportation, ride-sharing, or taxis. Restrict contact with pets and other animals. If you must care for your pet or be around animals while you are sick, wash your hands before and after your interaction and wear a facemask. Make sure that shared spaces in the home have good airflow, such as by an air conditioner or an opened window, weather permitting. Personal Hygiene Procedures: Wear a face mask when in the same room as other people or pets. If a face mask interferes with your breathing, others should wear a mask when sharing space with you. Frequent hand-washing: wash your hands with soap and water for at least 20 seconds. If soap and water are not available, use alcohol-based hand director acute. Avoid touching your eyes, nose, and mouth with unwashed hands. Household Hygiene Procedures: Avoid sharing personal household items such as dishes, glassware, cups, eating utensils, towels or bedding with other people or pets in your home. After use, these items should be washed with soap and hot water. Disinfect all high-touch surfaces every day with antibacterial cleaning solutions such as Lysol wipes, bleach, cleansers, etc. High-touch surfaces include tabletops, doorknobs, bathroom fixtures, toilets, phones, keyboards, tablets and bedside tables. Immediately clean any surfaces that may have blood, poop or body fluids on them, using antibacterial cleaning solutions such as Lysol wipes, bleach, cleansers, etc. If clothing or bedding come into contact with blood, poop or body fluids, they should be washed immediately. Follow the directions on the laundry detergent and clothing labels but hot water is recommended when possible. Stopping home isolation precautions: If possible, consult your doctor before stopping home isolation precautions. According to the CDC, you can discontinue home isolation precautions when you have met both of these criteria: Your fever and respiratory symptoms have been gone for 24 hours without the use of any medicines like ibuprofen (Motrin) and acetaminophen (Tylenol). It has been at least 10 days since your symptoms first appeared. If you are immunosuppressed OR you were admitted to the hospital for this, you should wait until it has been 14 days since your symptoms first appeared. Guidelines for Those Living With and/or Caring For Persons with COVID-19: Read and follow all the recommendations outlined in this handout. Do not permit visitors in the home unless there is an essential need. Wear a facemask when in the same room as the patient. Wear a facemask and gloves (disposable if available) when you touch or have contact with the patient's blood, poop, or body fluids including saliva, phlegm, nasal mucus, vomit or urine. Clean or throw away facemasks and gloves after use and wash your hands with soap and water. You will need to quarantine (stay away from others) for 14 days after your last contact with your family member with COVID-19. The person with COVID-19 is considered contagious 48 hours prior to symptoms beginning (or starting with the day of the positive test if they have no symptoms) for a total of 10 days. Additional resources: [facility] COVID Hotline at 4-672-2EKRUMS ( ). COVID-19 Careline at (availab le 24 hours per day, seven days a week if you or a loved one is experiencing anxiety related to the coronavirus pandemic). Clinical research opportunities: is conducting research studies to develop better testing and treatments for COVID. Do you want any information on how to participate Call [phone]. Websites: hospitals.org or www.CDC.gov Follow My Health / My [facility] (for other test results):[phone] 5 Revised 03/10/2020 Electronic Signatures: Brianda Lamar (ADMIN) (Signature pending) Authored Last Updated: 30-Jun-2020 05:49 by Brad Lamarices (ADMIN) Normal [facility] CORONAVIRUS 2019 BY PCRon Lab Specimen Source Nasal, Nasopharyngeal Normal [facility] Comment on above: Performed By: #### C OV19 #### [facility] [address] [place] [address] Vital Signs Date Time Vital Sign Value Performing Clinician Viki bishop 03-01-2024 10:58-0500 Body mass index (BMI) [Ratio] 26.15 kg/m2 Vincent Javier DO Work Phone: [facility] 03-01-2024 10:58-0500 Body temperature 98.6 [degF] Vincent Javier DO Work Phone: [facility] 03-01-2024 10:58-0500 Body weight 89.9 kg Vincent Javier DO Work Phone: [facility] 03-01-2024 10:58-0500 Diastolic blood pressure 74 mm[Hg] Vincent Javier DO Work Phone: [facility] 03-01-2024 10:58-0500 Heart rate 103 /min Vincent Javier DO Work Phone: [facility] 03-01-2024 10:58-0500 Respiratory rate 16 /min Vincent Javier DO Work Phone: [facility] 03-01-2024 10:58-0500 SaO2% (BldA) [Mass fraction] 100 % Vincent Javier DO Work Phone: [facility] 03-01-2024 10:58-0500 Systolic blood pressure 119 mm[Hg] Vincent Javier DO Work Phone: [facility] 01-18-2023 09:15-0400 Diastolic blood pressure 84 mm[Hg] Aneudy Bermeo MD Work Phone: [facility] 01-18-2023 09:15-0400 Heart rate 100 /min Aneudy Bermeo MD Work Phone: [facility] 01-18-2023 09:15-0400 Respiratory rate 16 /min Aneudy Bermeo MD Work Phone: [facility] 01-18-2023 09:15-0400 SaO2% (BldA) [Mass fraction] 98 % Aneudy Bermeo MD Work Phone: [facility] 01-18-2023 09:15-0400 Systolic blood pressure 132 mm[Hg] Aneudy Bermeo MD Work Phone: [facility] 01-18-2023 08:55-0400 Body temperature 96.8 [degF] Aneudy Bermeo MD Work Phone: [facility] 11-29-2022 09:54-0400 Body height 185.4 cm Vincent Javier DO Work Phone: [facility] 11-29-2022 09:54-0400 Body temperature 97.5 [degF] Vincent Javier DO Work Phone: [facility] 11-29-2022 09:54-0400 Body weight 90.72 kg Vincent Javier DO Work Phone: [facility] 11-29-2022 09:54-0400 Diastolic blood pressure 87 mm[Hg] Vincent Javier DO Work Phone: [facility] 11-29-2022 09:54-0400 Heart rate 112 /min Vincent Javier DO Work Phone: [facility] 11-29-2022 09:54-0400 Respiratory rate 18 /min Vincent Javier DO Work Phone: [facility] 11-29-2022 09:54-0400 SaO2% (BldA) [Mass fraction] 98 % Vincent Javier DO Work Phone: [facility] 11-29-2022 09:54-0400 Systolic blood pressure 118 mm[Hg] Vincent Javier DO Work Phone: [facility] 07-26-2022 10:55-0400 Body height 182.9 cm Jaime Maditz DO Work Phone: [facility] 07-26-2022 10:55-0400 Body weight 102.97 kg Jaime Maditz DO Work Phone: [facility] 07-26-2022 10:55-0400 Diastolic blood pressure 91 mm[Hg] Jaime Gates DO Work Phone: [facility] 07-26-2022 10:55-0400 Heart rate 92 /min Jaimedelbert Yiitz DO Work Phone: [facility] 07-26-2022 10:55-0400 Systolic blood pressure 121 mm[Hg] Jaime Yiitz DO Work Phone: [facility] 06-17-2022 08:54-0500 Body height 182.9 cm Kyrie Samsonnnan DO Work Phone: [facility] 06-17-2022 08:54-0500 Body temperature 98.2 [degF] Vincent Javier DO Work Phone: [facility] 06-17-2022 08:54-0500 Body weight 102.97 kg Anibalent Javier DO Work Phone: [facility] 06-17-2022 08:54-0500 Diastolic blood pressure 88 mm[Hg] Vincent Javier DO Work Phone: [facility] 06-17-2022 08:54-0500 Heart rate 107 /min Vincent Javier DO Work Phone: [facility] 06-17-2022 08:54-0500 Respiratory rate 16 /min Anibalent Javier DO Work Phone: [facility] 06-17-2022 08:54-0500 SaO2% (BldA) [Mass fraction] 99 % Vincent Javier DO Work Phone: [facility] 06-17-2022 08:54-0500 Systolic blood pressure 127 mm[Hg] Anibalent Javier DO Work Phone: [facility] 05-26-2022 10:11-0500 Body height 182.9 cm Anibalent Javier DO Work Phone: [facility] 05-26-2022 10:11-0500 Body temperature 97.39 [degF] Kyrie Prince DO Work Phone: [facility] 05-26-2022 10:11-0500 Body weight 102.51 kg Vinclew Franklinan DO Work Phone: [facility] 05-26-2022 10:11-0500 Diastolic blood pressure 74 mm[Hg] Kyrie Samsonnnan DO Work Phone: [facility] 05-26-2022 10:11-0500 Heart rate 84 /min Kyrie Franklinan DO Work Phone: [facility] 05-26-2022 10:11-0500 Respiratory rate 18 /min Kyrie Franklinan DO Work Phone: [facility] 05-26-2022 10:11-0500 SaO2% (BldA) [Mass fraction] 97 % Kyrie Franklinan DO Work Phone: [facility] 05-26-2022 10:11-0500 Systolic blood pressure 114 mm[Hg] Kyrie Franklinan DO Work Phone: [facility] 05-16-2022 09:32-0500 Body height 185.4 cm Sangita Dolan [employer] Work Phone: [facility] 05-16-2022 09:32-0500 Body weight 103.01 kg Sangita Dolan [employer] Work Phone: [facility] Encounters Encounter Date Encounter Type Care Provider Facility Start: 10-31-2024 End: 10-31-2024 ambulatory Adrianne Lee MA [facility] Start: 10-31-2024 End: 10-31-2024 Patient encounter procedure Adrianne Lee MA [facility] Comment on above: Population Health Na vigation Outreach (PCP Offboarding - Dr. Kyrie Prince/) Start: 10-10-2024 End: 10-10-2024 ambulatory Adrianne Lee MA [facility] Start: 10-10-2024 End: 10-10-2024 Patient encounter procedure Adrianne Lee MA [facility] Comment on above: Population Health Na vigation Outreach (PCP Offboarding - Dr. Kyrie Prince/) Start: 09-07-2024 End: 09-10-2024 Refill Antonio Pacheco MD Work Phone: [facility] Comment on above: Refill Request Start: 07-10-2024 End: 07-10-2024 Emergency department patient visit UNKNOWN PROVIDER Facility:[facility] Start: 05-08-2024 End: 05-08-2024 Telephone encounter [facility] Comment on above: Patient Update Start: 05-06-2024 End: 05-06-2024 Telephone encounter Sagnita Dolan APRN.CNP Work Phone: [facility] Comment on above: Appointment (Rectal bleeding) Start: 03-02-2024 End: 03-04-2024 ambulatory Kyrie Prince DO Work Phone: [facility] Start: 03-02-2024 End: 03-04-2024 Patient encounter procedure Kyrie Prince DO Work Phone: [facility] Comment on above: Referrals? Start: 03-01-2024 End: 03-01-2024 ambulatory KYRIE PRINCE Facility:[facility] Start: 03-01-2024 End: 03-01-2024 Office outpatient visit 25 minutes Kyrie Prince DO Work Phone: [facility] Comment on above: Urinary problem (Cristin mary jane Dx); Blood in stool Start: 01-18-2023 End: 01-18-2023 Subsequent hospital visit by physician Aneudy Bermeo MD Work Phone: [facility] Endoscopy Comment on above: Gastroesophageal ref lux disease with esophagitis without hemorrhage [K21.00] Start: 11-30-2022 End: 11-30-2022 Subsequent hospital visit by physician [facility] Work Phone: Radiology Comment on above: Testicular discomfor t [N50.819] Start: 11-29-2022 End: 08-08-2023 Office outpatient visit 25 minutes Kyrie Franklinan [employer] Work Phone: [facility] Comment on above: Testicular discomfor t (Primary Dx) Start: 09-27-2022 Orders Only Antonio Ochoa Work Phone: [facility]astroenterolgy Comment on above: Gastroesophageal ref lux disease with esophagitis without hemorrhage (Primary Dx) Start: 07-26-2022 End: 07-26-2022 Patient encounter procedure Jaime Gates DO Work Phone: Kidney Medicine Comment on above: Elevated serum creat inine (Primary Dx); JONATHAN (acute kidney injury) (HCC); Anemia of renal disease; Secondary renal hyperparathyroidism (HCC); Primary hypertension; Gastroesophageal reflux disease, unspecified whether esophagitis present Start: 07-01-2022 End: 07-01-2022 Subsequent hospital visit by physician [facility] Work Phone: Radiology Comment on above: Stage 3 chronic kidn ey disease, unspecified whether stage 3a or 3b CKD (HCC) [N18.30] Start: 06-17-2022 End: 06-17-2022 Office outpatient visit 25 minutes Autoquakelew Javier [employer] Work Phone: [facility] Comment on above: Gastroesophageal ref lux disease with esophagitis without hemorrhage (Primary Dx); Encounter for immunization; Immunization due; Elevated serum creatinine Start: 05-26-2022 End: 05-26-2022 Office outpatient new 45 minutes Autoquakelew Javier [employer] Work Phone: [facility] Comment on above: Encounter for immuni zation (Primary Dx); Screening for lipid disorders; Special screening examination for viral disease; Screening for HIV (human immunodeficiency virus); Diverticulitis; Obesity, Class I, BMI 30-34.9; Stage 3 chronic kidney disease, unspecified whether stage 3a or 3b CKD (HCC); Bipolar affective disorder, remission status unspecified (HCC) Start: 05-16-2022 End: 05-16-2022 Patient encounter procedure Sangita Dolan APRN.[employer] Work Phone: [facility] Comment on above: Nausea and vomiting in adult (Primary Dx); Gastroesophageal reflux disease, unspecified whether esophagitis present; Dyspepsia; Change in bowel habits; Diarrhea, unspecified type; Skin rash Start: 11-14-2017 End: 11-14-2017 ambulatory UNKNOWN PROVIDER Facility:[facility] Procedures Date Procedure Procedure Detail Performing Clinician Start: 01-18-2023 Esophagogastroduodenoscopy transoral diagnostic Antonio Pacheco MD Work Phone: Start: 11-30-2022 Dup-scan artl jeffery abdl/pel/scrot&/rpr orgn com Aniballew Javier THIBODEAUX Work Phone: Start: 11-30-2022 Us scrotum & contents Aniballew Javier THIBODEAUX Work Phone: Start: 07-01-2022 Us retroperitoneal real time w/image complete Aniballew Javier THIBODEAUX Work Phone: Start: 06-17-2022 Lipid 1996 panel - Serum or Plasma Tristin Bermeo MD Work Phone: Start: 06-29-2020 Follow-up visit Plan of Treatment Date Care Activity Detail Author Start: 05-30-2031 Urine microalbumin profile [facility] Start: 06-17-2027 Lipid 1996 panel - Serum or Plasma Lipid Screening [facility] Start: 06-17-2027 Lipid panel Lipid Screening [facility] Start: 06-17-2027 LIPID SCREEN LIPID SCREEN [facility] Start: 12-28-2024 End: 12-28-2024 Patient encounter procedure 12/28/2024 9:00 AM EDT Office Visit [facility] [address] [id number] Chuy Haney MD [address] [place] [address] Physical visit [facility] Comment on above: Physical visit Start: 12-23-2024 Influenza vaccination [facility] Start: 05-08-2024 End: 05-08-2024 Patient encounter procedure 05/08/2024 9:00 AM EST Office Visit [facility] [address] [place] [address] Sangita Dolan, [employer] [address] [place] [address] Blood in stool [K92.1] [facility] Comment on above: Blood in stool [K92.1] Start: 04-24-2024 Medicare Advantage Annual Wellness Visit Medicare Advantage Annual Wellness Visit [facility] Start: 04-03-2024 End: 04-03-2024 Patient encounter procedure 04/03/2024 1:30 PM EST Office Visit Urology [address] [address] Dyllan Duncan MD [address] [place] [address] Urinary problem [R39.89] Urology Comment on above: Urinary problem [R39.89] Start: 12-24-2023 Covid-19 Vaccine () Covid-19 Vaccine () [facility] Start: 12-24-2023 Influenza vaccination Influenza Vaccine (#1) [facility] Start: 12-23-2022 Influenza vaccination [facility] Start: 11-29-2022 End: 01-29-2023 Bacteria identified in Urine by Culture URINE CULTURE Microbiology Routine Testicular discomfort Expected: 11/29/2022, Expires: 01/29/2023 [facility] Work Phone: Comment on above: Expected: 11/29/2022, Expires: Start: 11-29-2022 End: 09-28-2023 EGD DIAGNOSTIC EGD DIAGNOSTIC Endoscopy Routine Gastroesophageal reflux disease with esophagitis without hemorrhage Expected: 11/29/2022 (Approximate), Expires: 09/28/2023 [facility] Work Phone: Comment on above: Expected: 11/29/2022 (Approximate), Expi res: 09/28/2023 Start: 11-29-2022 End: 01-29-2023 Urinalysis complete panel - Urine URINALYSIS, WITH MICROSCOPIC Lab Routine Testicular discomfort Expected: 11/29/2022, Expires: 01/29/2023 [facility] Work Phone: Comment on above: Expected: 11/29/2022, Expires: Start: 07-26-2022 End: 09-25-2022 ALBUMIN/CREAT RATIO RND UR ALBUMIN/CREAT RATIO RND UR Lab Routine Elevated serum creatinine Expected: 07/26/2022, Expires: 09/25/2022 [facility] Work Phone: Comment on above: Expected: 07/26/2022, Expires: Start: 07-26-2022 End: 09-25-2022 GRANT BY IFA WITH REFLEX GRANT BY IFA WITH REFLEX Lab Routine Elevated serum creatinine Expected: 07/26/2022, Expires: 09/25/2022 [facility] Work Phone: Comment on above: Expected: 07/26/2022, Expires: Start: 07-26-2022 End: 09-25-2022 Complement C3 [Mass/volume] in Serum or Plasma C3 COMPLEMENT BLD Lab Routine Elevated serum creatinine Expected: 07/26/2022, Expires: 09/25/2022 [facility] Work Phone: Comment on above: Expected: 07/26/2022, Expires: 3 Start: 07-26-2022 End: 09-25-2022 Complement C4 [Mass/volume] in Serum or Plasma C4 COMPLEMENT BLD Lab Routine Elevated serum creatinine Expected: 07/26/2022, Expires: 09/25/2022 [facility] Work Phone: Comment on above: Expected: 07/26/2022, Expires: Start: 07-26-2022 End: 09-25-2022 Cryoglobulin [Mass/volume] in Serum or Plasma CRYOGLOBULIN BL Lab Routine Elevated serum creatinine Expected: 07/26/2022, Expires: 09/25/2022 [facility] Work Phone: Comment on above: Expected: 07/26/2022, Expires: Start: 07-26-2022 End: 09-25-2022 CYSTATIN C CYSTATIN C Lab Routine Elevated serum creatinine Expected: 07/26/2022, Expires: 09/25/2022 [facility] Work Phone: Comment on above: Expected: 07/26/2022, Expires: 3 Start: 07-26-2022 End: 09-25-2022 MONOCLONAL PROTEIN, SERUM (BLOOD) MONOCLONAL PROTEIN, SERUM (BLOOD) Lab Routine Elevated serum creatinine Expected: 07/26/2022, Expires: 09/25/2022 [facility] Work Phone: Comment on above: Expected: 07/26/2022, Expires: Start: 07-26-2022 End: 09-25-2022 Protein/Creatinine [Mass Ratio] in Urine PROTEIN CREATININE RATIO Lab Routine Elevated serum creatinine Expected: 07/26/2022, Expires: 09/25/2022 [facility] Work Phone: Comment on above: Expected: 07/26/2022, Expires: 3 Start: 07-26-2022 End: 09-25-2022 Renal function 2000 panel - Serum or Plasma RENAL FUNCTION PANEL Lab Routine Elevated serum creatinine Expected: 07/26/2022, Expires: 09/25/2022 [facility] Work Phone: Comment on above: Expected: 07/26/2022, Expires: 3 Start: 07-26-2022 End: 09-25-2022 Urinalysis complete panel - Urine URINALYSIS, WITH MICROSCOPIC Lab Routine Elevated serum creatinine Expected: 07/26/2022, Expires: 09/25/2022 [facility] Work Phone: Comment on above: Expected: 07/26/2022, Expires: 3 Start: 07-15-2022 HEPATITIS B (2 of 2 - CpG 2-dose series) HEPATITIS B (2 of 2 - CpG 2-dose series) [facility] Start: 07-15-2022 Hepatitis B Vaccine (2 of 2 - CpG 2-dose series) Hepatitis B Vaccine (2 of 2 - CpG 2-dose series) [facility] Start: 07-15-2022 Hepb vaccine adult 2 dose schedule for im use HEPLISAV B (HEPATITIS B, ADJUVANT, ADULT) Immunization/Injection Routine Immunization due Expected: 07/15/2022 [facility] Work Phone: Comment on above: Expected: 07/15/2022 Start: 05-26-2022 End: 07-26-2022 Basic metabolic 2000 panel - Serum or Plasma BASIC METABOLIC PNL Lab Routine Diverticulitis Expected: 05/26/2022, Expires: 07/26/2022 [facility] Work Phone: Comment on above: Expected: 05/26/2022, Expires: Start: 05-26-2022 End: 07-26-2022 Hemoglobin A1c in Blood HGB A1C Lab Routine Obesity, Class I, BMI 30-34.9 Expected: 05/26/2022, Expires: 07/26/2022 [facility] Work Phone: Comment on above: Expected: 05/26/2022, Expires: Start: 05-26-2022 End: 07-26-2022 Hepatitis C virus Ab [Presence] in Serum HEP C AB IA W/CONF SCRN Lab Routine Special screening examination for viral disease Expected: 05/26/2022, Expires: 07/26/2022 [facility] Work Phone: Comment on above: Expected: 05/26/2022, Expires: Start: 05-26-2022 End: 07-26-2022 HIV 1+2 Ab [Presence] in Serum or Plasma by Immunoassay HIV 1 2 COMBO(AG/AB),WITH REFLEX TO DIFFERENTIATION Lab Routine Screening for HIV (human immunodeficiency virus) Expected: 05/26/2022, Expires: 07/26/2022 [facility] Work Phone: Comment on above: Expected: 05/26/2022, Expires: 3 Start: 05-26-2022 End: 07-26-2022 Lipid 1996 panel - Serum or Plasma LIPID PANEL BASIC Lab Routine Screening for lipid disorders Expected: 05/26/2022, Expires: 07/26/2022 [facility] Work Phone: Comment on above: Expected: 05/26/2022, Expires: 3 Start: 05-16-2022 End: 07-16-2022 IgA [Mass/volume] in Serum or Plasma [facility] Work Phone: Comment on above: Expected: 05/16/2022, Expires: 3 Start: 05-16-2022 End: 07-16-2022 Tissue transglutaminase IgA Ab [Units/volume] in Serum [facility] Work Phone: Comment on above: Expected: 05/16/2022, Expires: 3 Start: 04-24-2022 DEPRESSION ASSESSMENT DEPRESSION ASSESSMENT [facility] Start: 2021 LIPID SCREEN LIPID SCREEN [facility] Start: 02-14-2004 Anxiety Screening Anxiety Screening [facility] Start: 02-14-2004 Depression Screening Depression Screening [facility] Start: 02-14-2004 HEPATITIS C SCREENING HEPATITIS C SCREENING [facility] Start: 02-14-2004 HIV SCREENING HIV SCREENING [facility] Start: 02-14-1992 PNEUMOCOCCAL (1 - PCV) PNEUMOCOCCAL (1 - PCV) [facility] Start: 1986 HEPATITIS B (1 of 3 - 3-dose series) HEPATITIS B (1 of 3 - 3-dose series) [facility] Clostridioides diffi cile toxin genes [Presence] in Stool by MELISSA with probe detection C. DIFFICILE PCR Lab Routine Change in bowel habits Diarrhea, unspecified type Ordered: 05/16/2022 [facility] Work Phone: Comment on above: Ordered: 05/16/2022 End: 05-16-2023 COLONOSCOPY DIAGNOSTIC COLONOSCOPY DIAGNOSTIC Endoscopy Routine Change in bowel habits Diarrhea, unspecified type 1 Occurrences starting 05/16/2022 until 05/16/2023 [facility] Work Phone: Comment on above: 1 Occurrences starting 05/16/2022 until 05/16/2023 End: 05-16-2023 EGD DIAGNOSTIC EGD DIAGNOSTIC Endoscopy Routine Nausea and vomiting in adult Gastroesophageal reflux disease, unspecified whether esophagitis present Dyspepsia 1 Occurrences starting 05/16/2022 until 05/16/2023 [facility] Work Phone: Comment on above: 1 Occurrences starting 05/16/2022 until 05/16/2023 ENTERIC BACTERIAL PA BK BY PCR ENTERIC BACTERIAL PANEL BY PCR Lab Routine Change in bowel habits Diarrhea, unspecified type Ordered: 05/16/2022 [facility] Work Phone: Comment on above: Ordered: 05/16/2022 FECAL LACTOFERRIN/LEUKOCYTES FECAL LACTOFERRIN/LEUKOCYTES Lab Routine Change in bowel habits Diarrhea, unspecified type Ordered: 05/16/2022 [facility] Work Phone: Comment on above: Ordered: 05/16/2022 End: 06-15-2023 Gastric emptying imaging study NM GASTRIC EMPTYING SOLID Radiology Routine Gastroesophageal reflux disease, unspecified whether esophagitis present Dyspepsia 1 Occurrences starting 05/16/2022 until 06/15/2023 [facility] Work Phone: Comment on above: 1 Occurrences starting 05/16/2022 until 06/15/2023 SURGICAL PATHOLOGY [facility] Work Phone: Comment on above: Release Upon Ordering for 1 Occurrences starting 01/18/2023, 1 completed End: 12-29-2023 Us scrotum & contents US SCROTUM AND CONTENTS Radiology STAT Testicular discomfort 1 Occurrences starting 11/29/2022 until 12/29/2023 [facility] Work Phone: Comment on above: 1 Occurrences starting 11/29/2022 until 12/29/2023 [facility] Immunizations Immunization Date Immunization Notes Care Provider Josette muir 06-17-2022 Hepatitis B vaccine (recombinant), CpG adjuvanted Kyrie Prince DO Work Phone: [facility] 06-17-2022 pneumococcal (PCV20) vaccine, 20 valent (PREVNAR 20) Kyrei Prince DO Work Phone: [facility] 06-17-2022 pneumococcal Conjuga te, unspecified formulation Kyrie Prince DO Work Phone: [facility] Work Phone: 06-17-2022 hepatitis B vaccine, unspecified formulation Kyrie Prince DO Work Phone: [facility] 02-20-2022 influenza, injectabl e, quadrivalent, preservative free Kyrie Prince DO Work Phone: [facility] 02-20-2022 influenza virus vaccine, unspecified formulation Aneudy Bermeo MD Work Phone: [facility] 05-30-2021 tetanus toxoid, redu ameena diphtheria toxoid, and acellular pertussis vaccine, adsorbed Sangita Dolan [employer] Work Phone: [facility] 03-29-2019 hepatitis A vaccine, adult dosage Kyrie Prince DO Work Phone: [facility] Payers Date Payer Category Payer Medicaid [id number] 2020 Medicare [id number] 2020 Medicare (Managed Care) [facility] MEDICARE [id number] 2020 Medicare [id number] 2017 Unknown SELF 1985 Unknown [id number] Social History Date Type Detail Facility Start: 05-16-2022 End: 03-01-2024 Tobacco smoking status NHIS Smokes tobacco daily [facility] History of tobacco use Cigarette Smoker C [facility] Start: 05-16-2022 End: 11-29-2022 Cigarettes smoked current (pack per day) - Reported 1 [facility] Start: 05-16-2022 End: 03-01-2024 Tobacco use and exposure Smokeless tobacco non-user [facility] Start: 05-16-2022 End: 03-01-2024 Alcohol intake Ex-drinker (finding) [facility] Start: 1985 Sex Assigned At Not on file C [facility] Start: 05-22-2022 History SDOH Physica l Activity DPW 0 [facility] Start: 05-22-2022 History SDOH Housing Unable to Pay 3 [facility] Start: 05-22-2022 End: 11-29-2022 Social connection and isolation panel [facility] In a typical week, h ow many times do you talk on the telephone with family, friends, or neighbors? Patient refused [facility] Are you now , , , , never or living with a partner? Refused [facility] (I/We) worried ángela er (my/our) food would run out before (I/we) got money to buy more. DK or Refused [facility] Are you now , , , , never or living with a partner? Never [facility] How often to you hav e a drink containing alcohol? 2-4 times a month [facility] How many standard dr inks containing alcohol do you have on a typical day? 1 or 2 [facility] How often do you hav e 6 or more drinks on 1 occasion? Never [facility] Do you feel stress - tense, restless, nervous, or anxious, or unable to sleep at night because your mind is troubled all the time - these days [OSQ] To some extent [facility] Clinical Notes 05-16-2022 to 10-31-2024 Adrianne Lee MA - 10/31/2024 3:31 PM Adrianne Fenton MA - 10/10/2024 2:21 PM EDTTelephone Encounter - Damion Dupree MA - 09/10/2024 8:28 AM Miguel Pacheco MD - 09/27/2022 11:05 AM EDT Note Date & Type Note Facility 10-31-2024 Note HNO ID: [id number] Author: ADRIANNE LEE MA Service: ? Author Type: Sports Editor Type: Progress Notes Filed: 10/31/2024 15:33 Note Text: POPULATION HEALTH NAVIGATION OUTREACH Action/FYI Patient previously scheduled for establish care appointment with Dr. Chuy Haney on 12/28/2024. I have updated the the PCP field today. Reason for Outreach Attribution: Provider Off-boarding Care Gaps due: N/A Patient Contacted: Unable or unnecessary to reach patient: PCP field updated Patient already scheduled Navigation Signature: Adrianne Lee MA October 31, 2024 3:32 PM [facility] 10-31-2024 History of Present illness Narrative POPULATION HEALTH NAVIGATION OUTREACH Action/FYI Patient previously scheduled for establish care appointment with Dr. Chuy Haney on 12/28/2024. I have updated the the PCP field today. Reason for Outreach Attribution: Provider Off-boarding Care Gaps due: N/A Patient Contacted: Unable or unnecessary to reach patient: PCP field updated Patient already scheduled Navigation Signature: Ardianne Lee MA October 31, 2024 3:32 PM documented in this encounter [facility] 10-31-2024 Note Patient Outreach (KULWANT TNAV) MARK STEPHENSON ([id number]) 1985 M Date Time Provider Department 10/31/24 ADRIANNE LEE During your visit today, we recorded the following information about you: Adrianne Lee MA 10/31/2024 3:33 PM Signed POPULATION HEALTH NAVIGATION OUTREACH Action/FYI Patient previously scheduled for [facility] appointment with Dr. Chuy Haney on 12/28/2024. I have updated the the PCP field today. Reason for Outreach Attribution: Provider Off-boarding Care Gaps due: N/A Patient Contacted: Unable or unnecessary to reach patient: PCP field updated Patient already scheduled Navigation Signature: Adrianne Lee MA October 31, 2024 3:32 PM Allergies As of Date: 10/31/2024 Noted Allergy Reaction BACTRIM (SULFAMETHOXAZOLE-TRIMETH*09/05/19 - Other: See Comments Date Reviewed: 07/10/2024 Reviewed by: Donna Morton RN - Fully Assessed Reason for Visit: Population Health Navigation Outreach [3910] Cmt: PCP Offboarding - Dr. Kyrie Prince Prescriptions as of 10/31/2024 - VRAYLAR 4.5 mg capsule Take 1 capsule by mouth every afternoon. - dextroamphetamine-amphetamine (ADDERALL) 20 mg tablet Take 0.5 tablets by mouth every 12 hours. - traZODone (DESYREL) 50 mg tablet Take 50 mg by mouth daily at bedtime. - escitalopram oxalate (LEXAPRO) 10 mg tablet Take 10 mg by mouth once daily. - omeprazole (PRILOSEC) 40 mg capsule Take 1 capsule by mouth two times a day before meals. - donepezil (ARICEPT) 5 mg tablet Take 5 mg by mouth daily at bedtime. - lurasidone (LATUDA) 20 mg tablet once daily. - lurasidone (LATUDA) 80 mg tablet once daily. - buPROPion XL (WELLBUTRIN XL) 150 mg 24 hr tablet Take 150 mg by mouth once daily. Taking along with 300 mg for a total of 450 mg daily - albuterol HFA (PROVENTIL HFA, VENTOLIN HFA) 90 mcg/actuation inhaler INHALE 2 PUFFS BY MOUTH EVERY 4 TO 6 HOURS NEEDED - nicotine (NICODERM) 7 mg/24 hr Apply 1 Patch as directed every 24 hours. - buPROPion XL (WELLBUTRIN XL) 300 mg 24 hr tablet Take 300 mg by mouth once daily. - hydrOXYzine HCl (ATARAX) 25 mg tablet Take 25 mg by mouth three times daily as needed. - QUEtiapine XR (SEROQUEL XR) 300 mg 24 hr tablet Take 300 mg by mouth daily at bedtime. 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 Author Type: Sports Editor Type: Progress Notes Filed: 10/10/2024 14:22 Note Text: POPULATION HEALTH NAVIGATION OUTREACH Action/FYI Upon reviewing patient's chart, it was found that he has an Establish Care appointment with Dr. Chuy Haney on 12/28/2024. PCP field has been updated with a future start date for the new PCP. Reason for Outreach Attribution: Provider Off-boarding Care Gaps due: N/A Patient Contacted: Unable or unnecessary to reach patient: PCP field updated Patient already scheduled Navigation Signature: Adrianne Lee MA October 10, 2024 2:21 PM [facility] 10-10-2024 History of Present illness Narrative POPULATION HEALTH NAVIGATION OUTREACH Action/FYI Upon reviewing patient's chart, it was found that he has an Establish Care appointment with Dr. Chuy Haney on 12/28/2024. PCP field has been updated with a future start date for the new PCP. Reason for Outreach Attribution: Provider Off-boarding Care Gaps due: N/A Patient Contacted: Unable or unnecessary to reach patient: PCP field updated Patient already scheduled Navigation Signature: Adrianne Lee MA October 10, 2024 2:21 PM documented in this encounter [facility] 10-10-2024 Note Patient Outreach (KULWANT TNAV) SRIDEVIMARK IRBY ([id number]) 1985 M Date Time Provider Department 10/10/24 ADRIANNE LEE NETNICAV During your visit today, we recorded the following information about you: Adrianne Lee MA 10/10/2024 2:22 PM Signed POPULATION HEALTH NAVIGATION OUTREACH Action/FYI Upon reviewing patient's chart, it was found that he has an Establish Care appointment with Dr. Chuy Haney on 12/28/2024. PCP field has been updated with a future start date for the new PCP. Reason for Outreach Attribution: Provider Off-boarding Care Gaps due: N/A Patient Contacted: Unable or unnecessary to reach patient: PCP field updated Patient already scheduled Navigation Signature: Adrianne Lee MA October 10, 2024 2:21 PM Allergies As of Date: 10/10/2024 Noted Allergy Reaction BACTRIM (SULFAMETHOXAZOLE-TRIMETH*09/05/19 14 - Other: See Comments Date Reviewed: 07/10/2024 Reviewed by: Donna Morton, RN - Fully Assessed Reason for Visit: Population Health Navigation Outreach [3910] Cmt: PCP Offboarding - Dr. Kyrie Prince Prescriptions as of 10/10/2024 - VRAYLAR 4.5 mg capsule Take 1 capsule by mouth every afternoon. - dextroamphetamine-amphetamine (ADDERALL) 20 mg tablet Take 0.5 tablets by mouth every 12 hours. - traZODone (DESYREL) 50 mg tablet Take 50 mg by mouth daily at bedtime. - escitalopram oxalate (LEXAPRO) 10 mg tablet Take 10 mg by mouth once daily. - omeprazole (PRILOSEC) 40 mg capsule Take 1 capsule by mouth two times a day before meals. - donepezil (ARICEPT) 5 mg tablet Take 5 mg by mouth daily at bedtime. - lurasidone (LATUDA) 20 mg tablet once daily. - lurasidone (LATUDA) 80 mg tablet once daily. - buPROPion XL (WELLBUTRIN XL) 150 mg 24 hr tablet Take 150 mg by mouth once daily. Taking along with 300 mg for a total of 450 mg daily - albuterol HFA (PROVENTIL HFA, VENTOLIN HFA) 90 mcg/actuation inhaler INHALE 2 PUFFS BY MOUTH EVERY 4 TO 6 HOURS NEEDED - nicotine (NICODERM) 7 mg/24 hr Apply 1 Patch as directed every 24 hours. - buPROPion XL (WELLBUTRIN XL) 300 mg 24 hr tablet Take 300 mg by mouth once daily. - hydrOXYzine HCl (ATARAX) 25 mg tablet Take 25 mg by mouth three times daily as needed. - QUEtiapine XR (SEROQUEL XR) 300 mg 24 hr tablet Take 300 mg by mouth daily at bedtime. 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 Damion Dupree MA September 10, 2024 8:33 AM [facility] 09-10-2024 Miscellaneous Notes Sent annette,omeprazole medication can't be filled out because you haven't seen more then one year Patient need a follow up appointment. Damion Dupree MA September 10, 2024 8:33 AM Please see the following request for medication renewal and fill if it is appropriate. Thank you Damion Dupree MA September 09, 2024 9:20 AM documented in this encounter [facility] 09-09-2024 Telephone encounter Note Please see the following request for medication renewal and fill if it is appropriate. Thank you Damion Dupree MA September 09, 2024 9:20 AM [facility] 05-08-2024 Telephone encounter Note Pt. Update 05.08.24- Gastro call spoke with pt. Said he is going to see his pc first then going to call for appt. Was sent email with phone numbers for pt. To call for appt. Note:Rectal bleeding [facility] 05-08-2024 Miscellaneous Notes Pt. Update 05.08.24- Gastro call spoke with pt. Said he is going to see his pc first then going to call for appt. Was sent email with phone numbers for pt. To call for appt. Note:Rectal bleeding documented in this encounter [facility] 05-06-2024 Telephone encounter Note Per provider request, she saw this patient in the past and he had colonoscopy in 10/14. He is now on her schedule for rectal bleeding and should be scheduled w/[employer] for evaluation. Attempted to call patient at the listed number and unable to reach, could not leave a message. 2 attempts made. Sami Tariq CMA May 06, 2024 1:57 PM [facility] 05-06-2024 Miscellaneous Notes Per provider request, she saw this patient in the past and he had colonoscopy in 10/14. He is now on her schedule for rectal bleeding and should be scheduled w/[facility] for evaluation. Attempted to call patient at the listed number and unable to reach, could not leave a message. 2 attempts made. Sami Tariq CMA May 06, 2024 1:57 PM documented in this encounter [facility] 03-04-2024 Telephone encounter Note Spoke to patient, scheduled appts [facility] 03-04-2024 Miscellaneous Notes Spoke to patient, scheduled appts documented in this encounter [facility] 03-01-2024 Note HNO ID: [id number] Author: KYRIE PRINCE, DO Service: ? Author Type: Physician Type: Progress Notes Filed: 04/02/2024 11:56 Note Text: 39 year old male presenting for multiple I have fully reviewed the past medical, surgical, social and family history and updated the Histories section of [facility]. Blood in stool chronically bright red happened yesterday occurrs every week or so started after colonoscopy last year Problems with starting urine stream pain Is able to urinate currently Current Outpatient Medications on File Prior to Visit: Current Outpatient Medications Medication Sig Dispense Refill VRAYLAR 4.5 mg capsule Take 1 capsule by mouth every afternoon. dextroamphetamine-amphetamine (ADDERALL) 20 mg tablet Take 0.5 tablets by mouth every 12 hours. traZODone (DESYREL) 50 mg tablet Take 50 mg by mouth daily at bedtime. omeprazole (PRILOSEC) 40 mg capsule Take 1 capsule by mouth two times a day before meals. 60 capsule 3 buPROPion XL (WELLBUTRIN XL) 150 mg 24 hr tablet Take 150 mg by mouth once daily. Taking along with 300 mg for a total of 450 mg daily albuterol HFA (PROVENTIL HFA, VENTOLIN HFA) 90 mcg/actuation inhaler INHALE 2 PUFFS BY MOUTH EVERY 4 TO 6 HOURS NEEDED hydrOXYzine HCl (ATARAX) 25 mg tablet Take 25 mg by mouth three times daily as needed. escitalopram oxalate (LEXAPRO) 10 mg tablet Take 10 mg by mouth once daily. (Patient not taking: Reported on 03/01/2024) donepezil (ARICEPT) 5 mg tablet Take 5 mg by mouth daily at bedtime. (Patient not taking: Reported on 03/01/2024) lurasidone (LATUDA) 20 mg tablet once daily. (Patient not taking: Reported on 03/01/2024) lurasidone (LATUDA) 80 mg tablet once daily. (Patient not taking: Reported on 03/01/2024) nicotine (NICODERM) 7 mg/24 hr Apply 1 Patch as directed every 24 hours. 30 Patch 2 buPROPion XL (WELLBUTRIN XL) 300 mg 24 hr tablet Take 300 mg by mouth once daily. (Patient not taking: Reported on 03/01/2024) QUEtiapine XR (SEROQUEL XR) 300 mg 24 hr tablet Take 300 mg by mouth daily at bedtime. (Patient not taking: Reported on 03/01/2024) No current facility-administered medications for this visit. ALLERGIES Allergen Reactions Bactrim [Sulfametho* Other: See Comments No past surgical history on file. Social history reviewed in [employer]. REVIEW OF SYSTEMS: Constitutional: Denies fever, denies chills, denies fatigue Head: Denies headache Eyes: Denies changes in vision or blurry vision Ears/Nose/Throat: Denies sore throat, denies rhinorrhea Musculoskeletal: Denies joint pain, denies myalgias Abd: No abd pain, no vomiting, no diarrhea, no nausea Skin/Breast: Denies rash or lesions Cardiovascular: Denies chest pain, denies palpitations, denies LE edema Respiratory: Denies cough, denies SOB, denies wheezing Neurological: Denies numbness, denies tingling, denies weakness PHYSICAL EXAMINATION: General appearance: Well appearing, alert, in no acute distress, well-hydrated, well nourished. Skin: no suspicious rashes or lesions Head: Normocephalic, atraumatic Eyes: Anicteric sclera. Pupils are equally round and reactive to light. Extraocular movements are intact. Ears: External ears normal, canals clear Nose/Sinuses: Nares normal, septum midline, mucosa normal, Oropharynx: Lips, mucosa, and tongue normal, good dentition, no pharyngeal erythema or exudates Neck: Supple, no adenopathy Lungs: Lungs clear to auscultation. No wheezing, rhonchi, rales. Heart: RRR without murmur, gallop, or rubs. Abdomen: Normal abdominal exam, Abdomen soft, non-tender. No masses Extremities: No deformities, no edema, no cyanosis. Musculoskeletal: No joint swelling, no deformity Neuro: Gait normal. Speech intact ASSESSMENT/PLAN: 1. Urinary problem - ICD9: V47.4, ICD10: R39.89 (primary diagnosis) - CONSULT TO UROLOGY 2. Blood in stool - ICD9: 578.1, ICD10: K92.1 - CONSULT TO GASTROENTEROLOGY No emergent complaints these are chronic needs specialist evaluation Discussed with patient red flag symptoms. Discussed risks and benefits of treatment plan. Pt understands to seek appropriate evaluation for new or worsening symptoms. Patient understands and agrees with plan, all concerns and questions addressed. [facility] 03-01-2024 History of Present illness Narrative 39 year old male presenting for multiple I have fully reviewed the past medical, surgical, social and family history and updated the Histories section of [facility]. Blood in stool chronically bright red happened yesterday occurrs every week or so started after colonoscopy last year Problems with starting urine stream pain Is able to urinate currently Current Outpatient Medications on File Prior to Visit: Current Outpatient Medications Medication Sig Dispense Refill VRAYLAR 4.5 mg capsule Take 1 capsule by mouth every afternoon. dextroamphetamine-amphetamine (ADDERALL) 20 mg tablet Take 0.5 tablets by mouth every 12 hours. traZODone (DESYREL) 50 mg tablet Take 50 mg by mouth daily at bedtime. omeprazole (PRILOSEC) 40 mg capsule Take 1 capsule by mouth two times a day before meals. 60 capsule 3 buPROPion XL (WELLBUTRIN XL) 150 mg 24 hr tablet Take 150 mg by mouth once daily. Taking along with 300 mg for a total of 450 mg daily albuterol HFA (PROVENTIL HFA, VENTOLIN HFA) 90 mcg/actuation inhaler INHALE 2 PUFFS BY MOUTH EVERY 4 TO 6 HOURS NEEDED hydrOXYzine HCl (ATARAX) 25 mg tablet Take 25 mg by mouth three times daily as needed. escitalopram oxalate (LEXAPRO) 10 mg tablet Take 10 mg by mouth once daily. (Patient not taking: Reported on 03/01/2024) donepezil (ARICEPT) 5 mg tablet Take 5 mg by mouth daily at bedtime. (Patient not taking: Reported on 03/01/2024) lurasidone (LATUDA) 20 mg tablet once daily. (Patient not taking: Reported on 03/01/2024) lurasidone (LATUDA) 80 mg tablet once daily. (Patient not taking: Reported on 03/01/2024) nicotine (NICODERM) 7 mg/24 hr Apply 1 Patch as directed every 24 hours. 30 Patch 2 buPROPion XL (WELLBUTRIN XL) 300 mg 24 hr tablet Take 300 mg by mouth once daily. (Patient not taking: Reported on 03/01/2024) QUEtiapine XR (SEROQUEL XR) 300 mg 24 hr tablet Take 300 mg by mouth daily at bedtime. (Patient not taking: Reported on 03/01/2024) No current facility-administered medications for this visit. ALLERGIES Allergen Reactions Bactrim [Sulfametho* Other: See Comments No past surgical history on file. Social history reviewed in [facility]. REVIEW OF SYSTEMS: Constitutional: Denies fever, denies chills, denies fatigue Head: Denies headache Eyes: Denies changes in vision or blurry vision Ears/Nose/Throat: Denies sore throat, denies rhinorrhea Musculoskeletal: Denies joint pain, denies myalgias Abd: No abd pain, no vomiting, no diarrhea, no nausea Skin/Breast: Denies rash or lesions Cardiovascular: Denies chest pain, denies palpitations, denies LE edema Respiratory: Denies cough, denies SOB, denies wheezing Neurological: Denies numbness, denies tingling, denies weakness PHYSICAL EXAMINATION: General appearance: Well appearing, alert, in no acute distress, well-hydrated, well nourished. Skin: no suspicious rashes or lesions Head: Normocephalic, atraumatic Eyes: Anicteric sclera. Pupils are equally round and reactive to light. Extraocular movements are intact. Ears: External ears normal, canals clear Nose/Sinuses: Nares normal, septum midline, mucosa normal, Oropharynx: Lips, mucosa, and tongue normal, good dentition, no pharyngeal erythema or exudates Neck: Supple, no adenopathy Lungs: Lungs clear to auscultation. No wheezing, rhonchi, rales. Heart: RRR without murmur, gallop, or rubs. Abdomen: Normal abdominal exam, Abdomen soft, non-tender. No masses Extremities: No deformities, no edema, no cyanosis. Musculoskeletal: No joint swelling, no deformity Neuro: Gait normal. Speech intact ASSESSMENT/PLAN: 1. Urinary problem - ICD9: V47.4, ICD10: R39.89 (primary diagnosis) - CONSULT TO UROLOGY 2. Blood in stool - ICD9: 578.1, ICD10: K92.1 - CONSULT TO GASTROENTEROLOGY No emergent complaints these are chronic needs specialist evaluation Discussed with patient red flag symptoms. Discussed risks and benefits of treatment plan. Pt understands to seek appropriate evaluation for new or worsening symptoms. Patient understands and agrees with plan, all concerns and questions addressed. documented in this encounter [facility] 01-18-2023 History and physical note 37 year old male presenting for follow up I have fully reviewed the past medical, surgical, social and family history and updated the Histories section of [facility] Abd pain improved Antibiotics appear to have worked. Patient is following GI, has upper and lower endoscopy scheduled. Continues to have intermittent nausea and vomiting, gastric emptying study was negative per patient. Patient is due for labs, did have elevated creatinine. Current Outpatient Medications on File Prior to Visit: CURRENT MEDICATIONS Current Outpatient Medications Medication Sig Dispense Refill buPROPion XL (WELLBUTRIN XL) 150 mg 24 hr tablet Take 150 mg by mouth once daily. Taking along with 300 mg for a total of 450 mg daily prazosin (MINIPRESS) 1 mg cap daily at bedtime. albuterol HFA (PROVENTIL HFA, VENTOLIN HFA) 90 mcg/actuation inhaler INHALE 2 PUFFS BY MOUTH EVERY 4 TO 6 HOURS NEEDED nicotine (NICODERM) 7 mg/24 hr Apply 1 Patch as directed every 24 hours. 30 Patch 2 atomoxetine (STRATTERA) 10 mg capsule Take 10 mg by mouth once daily. omeprazole (PRILOSEC) 40 mg capsule Take 1 capsule by mouth once daily. 30 capsule 2 sucralfate (CARAFATE) 1 gram tablet Take 1 tablet by mouth four times daily. 120 tablet 3 buPROPion XL (WELLBUTRIN XL) 300 mg 24 hr tablet Take 300 mg by mouth once daily. hydrOXYzine HCl (ATARAX) 25 mg tablet Take 25 mg by mouth three times daily as needed. lurasidone (LATUDA) 80 mg tablet Take 80 mg by mouth. Pt states is taking 100mg QUEtiapine XR (SEROQUEL XR) 300 mg 24 hr tablet Take 300 mg by mouth daily at bedtime. perphenazine 2 mg tablet Take 2 mg by mouth twice daily. No current facility-administered medications for this visit. ALLERGIES ALLERGIES Allergen Reactions Bactrim [Sulfametho* Other: See Comments PAST SURGICAL HISTORY No past surgical history on file. Social history reviewed in [employer]. REVIEW OF SYSTEMS: Constitutional: Denies fever, denies chills, denies fatigue Head: Denies headache Eyes: Denies changes in vision or blurry vision Ears/Nose/Throat: Denies sore throat, denies rhinorrhea Musculoskeletal: Denies joint pain, denies myalgias Abd: No abd pain, vomiting, no diarrhea, nausea Skin/Breast: Denies rash or lesions Cardiovascular: Denies chest pain, denies palpitations, denies LE edema Respiratory: Denies cough, denies SOB, denies wheezing Neurological: Denies numbness, denies tingling, denies weakness PHYSICAL EXAMINATION: General appearance: Well appearing, alert, in no acute distress, well-hydrated, well nourished. Skin: no suspicious rashes or lesions Head: Normocephalic, atraumatic Eyes: Anicteric sclera. Pupils are equally round and reactive to light. Extraocular movements are intact. Ears: External ears normal, canals clear Nose/Sinuses: Nares normal, septum midline, mucosa normal, Oropharynx: Lips, mucosa, and tongue normal, good dentition, no pharyngeal erythema or exudates Neck: Supple, no adenopathy Lungs: Lungs clear to auscultation. No wheezing, rhonchi, rales. Heart: RRR without murmur, gallop, or rubs. Abdomen: Normal abdominal exam, Abdomen soft, non-tender. No masses Extremities: No deformities, no edema, no cyanosis. Musculoskeletal: No joint swelling, no deformity Neuro: Gait normal. Speech intact ASSESSMENT/PLAN: 1. Gastroesophageal reflux disease with esophagitis without hemorrhage - ICD9: 530.81, 530.10, ICD10: K21.00 (primary diagnosis) - OMEPRAZOLE 40 MG CAPSULE,DELAYED RELEASE 2. Encounter for immunization - ICD9: V03.89, ICD10: Z23 - PNEUMOCOCCAL VACCINE (PREVNAR 20) 3. Immunization due - ICD9: V05.9, ICD10: Z23 - PNEUMOCOCCAL VACCINE (PREVNAR 20) - HEPLISAV B (HEPATITIS B, ADJUVANT, ADULT) - HEPLISAV B (HEPATITIS B, ADJUVANT, ADULT) 4. Elevated serum creatinine - ICD9: 790.99, ICD10: R79.89 - recheck Check labs/bmp Consider renal US/nephro eval if persistently elevated Continue with GI workup Kyrie Pricne DO UPDATED HISTORY AND PHYSICAL EXAMINATION SERVICE DATE: 01/18/2023 SERVICE TIME: 8:38 AM PHYSICAL EXAM MUST BE COMPLETED ON ADMISSION The History and Physical (completed in the past 30 days) has been reviewed and the patient has been examined. The contents accurately reflect the patient's condition with the following additions or revisions since the H&P was completed. Examination indicates no changes. This H&P can be found in the attached. SIGNATURE: Aneudy Bermeo III, MD PATIENT NAME: Mark Stephenson DATE: January 18, 2023 TIME: 8:38 AM documented in this encounter [facility] 11-30-2022 History of Present illness Narrative Radiology Service Progress Note PATIENT NAME: Mark Stephenson DATE OF SERVICE: November 30, 2022 TIME: 3:44 PM PATIENT IDENTITY VERIFICATION COMPLETED USING TWO (2) IDENTIFIERS: Name and Date of confirmed by patient verbally. FALL SCREENING: Has the patient had 2 falls in the last year or 1 fall with injury or currently using an Ambulatory Assistive Device (Walker, Cane, Wheelchair, Crutches, etc.)? No PATIENT GENDER DATA: Male PATIENT RELEVANT IMPLANT DATA REVIEWED: Not Applicable RADIOLOGY DEPARTMENT: Ultrasound PERIPHERAL IV DATA: Not applicable SIGNED BY: HOWARD Nevarez November 30, 2022 3:44 PM documented in this encounter [facility] 11-29-2022 History of Present illness Narrative 37 year old male presenting for left testicular pain I have fully reviewed the past medical, surgical, social and family history and updated the Histories section of [facility]. 1-2 weeks No injury sometimes painful with urination, does report some constipation as well no blood in the stool. Left testicle no dysuria no concerns for STDs Current Outpatient Medications on File Prior to Visit: Current Outpatient Medications Medication Sig Dispense Refill lurasidone (LATUDA) 20 mg tablet once daily. lurasidone (LATUDA) 80 mg tablet once daily. omeprazole (PRILOSEC) 40 mg capsule Take 1 capsule by mouth twice daily before meals. 60 capsule 3 albuterol HFA (PROVENTIL HFA, VENTOLIN HFA) 90 mcg/actuation inhaler INHALE 2 PUFFS BY MOUTH EVERY 4 TO 6 HOURS NEEDED nicotine (NICODERM) 7 mg/24 hr Apply 1 Patch as directed every 24 hours. 30 Patch 2 buPROPion XL (WELLBUTRIN XL) 300 mg 24 hr tablet Take 300 mg by mouth once daily. hydrOXYzine HCl (ATARAX) 25 mg tablet Take 25 mg by mouth three times daily as needed. QUEtiapine XR (SEROQUEL XR) 300 mg 24 hr tablet Take 300 mg by mouth daily at bedtime. donepezil (ARICEPT) 5 mg tablet Take 5 mg by mouth daily at bedtime. buPROPion XL (WELLBUTRIN XL) 150 mg 24 hr tablet Take 150 mg by mouth once daily. Taking along with 300 mg for a total of 450 mg daily (Patient not taking: Reported on 11/29/2022) No current facility-administered medications for this visit. ALLERGIES Allergen Reactions Bactrim [Sulfametho* Other: See Comments No past surgical history on file. Social history reviewed in [facility]. REVIEW OF SYSTEMS: Constitutional: Denies fever, denies chills, denies fatigue Head: Denies headache Eyes: Denies changes in vision or blurry vision Ears/Nose/Throat: Denies sore throat, denies rhinorrhea Musculoskeletal: Denies joint pain, denies myalgias Abd: No abd pain, no vomiting, no diarrhea, no nausea Skin/Breast: Denies rash or lesions Cardiovascular: Denies chest pain, denies palpitations, denies LE edema Respiratory: Denies cough, denies SOB, denies wheezing Neurological: Denies numbness, denies tingling, denies weakness PHYSICAL EXAMINATION: General appearance: Well appearing, alert, in no acute distress, well-hydrated, well nourished. Skin: no suspicious rashes or lesions Head: Normocephalic, atraumatic Eyes: Anicteric sclera. Pupils are equally round and reactive to light. Extraocular movements are intact. Ears: External ears normal, canals clear Nose/Sinuses: Nares normal, septum midline, mucosa normal, Oropharynx: Lips, mucosa, and tongue normal, good dentition, no pharyngeal erythema or exudates Neck: Supple, no adenopathy Lungs: Lungs clear to auscultation. No wheezing, rhonchi, rales. Heart: RRR without murmur, gallop, or rubs. Abdomen: Normal abdominal exam, Abdomen soft, non-tender. No masses Extremities: No deformities, no edema, no cyanosis. Musculoskeletal: No joint swelling, no deformity Neuro: Gait normal. 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 Testicular discomfort - ICD9: 608.9, ICD10: N50.819 - US SCROTUM AND CONTENTS - URINALYSIS, WITH MICROSCOPIC - URINE CULTURE STAT US Present for 1-2 weeks Likely orchitis, though will r/o any torsion No sti concern Continue to monitor constipation if persists pt will follow up, increase fiber intake Discussed with patient red flag symptoms. Discussed risks and benefits of treatment plan. Pt understands to seek appropriate evaluation for new or worsening symptoms. Patient understands and agrees with plan, all concerns and questions addressed. documented in this encounter [facility] 09-27-2022 History of Present illness Narrative documented in this encounter [facility] 07-26-2022 Instructions Jaime Gates DO - 07/26/2022 11:32 AM EDT Avoid Advil, Motrin (Ibuprofen), Aleve (Naproxen), Mobic (Meloxicam), Voltaren (Diclofenac) and other pain/arthritis medications called NSAIDS. Tylenol or topical voltaren gel if necessary for pain Lab work today Follow up with Dr. Gates frequency based on lab results General nephrology recommendations: o Tight glycemic control with A1C < 7.0 o Treat proteinuria with goal urine protein excretion < 500mg/dl o Treat metabolic acidosis and keep serum bicarbonate (CO2) > 20 o Keep serum phosphorus between 3.5-5.5mg/dl o Treat hyperlipidemia with Goal LDL <100mg/dl o Maintain a 2 gram sodium restricted diet o Avoid all nephrotoxic agents including NSAIDs, as above o MRI with gadolinium contrast is safe o Hydration advised prior to CT with iodinated contrast Please bring a complete list of your medications, the dosage and times taken - to every visit. We want to know that ALL of your concerns/needs relevant to this visit- were met today and that we have hopefully exceeded your expectations. You may receive a survey regarding your care today. If you do, please take a few minutes to fill it out and send it back. It will be greatly appreciated. documented in this encounter [facility] 07-26-2022 History of Present illness Narrative [facility] SERVICE DATE: 07/26/2022 SERVICE TIME: 12:46 PM REASON FOR CONSULT: I am asked to see this patient in consultation for my opinion regarding chronic kidney disease stage IIIa. My recommendations will be communicated by way of shared medical record, fax, or mail. REQUESTING PHYSICIAN: No ref. provider found PRIMARY CARE PHYSICIAN: Kyrie Prince DO CHIEF COMPLAINT: Chronic kidney disease stage IIIa HPI: Mr. Stephenson is a 37 year old male with a PMHx of bipolar disorder, GERD, tobacco abuse, and allergies who presents with chronic kidney disease stage IIIa. Creatinine 1.3 which increased to 1.8 04/2022. Last creatinine 1.5 on 06/17/2022. No UA. US kidney/bladder with normal appearing kidneys Hep C negative HIV negative Issues with constant vomiting. Evaluated by GI. Gastric emptying study with acceleraged rate of gastric emptying. Colonoscopy/EGD ordered but not completed. States that he had kidney pain before his vomiting started. Duration (when): Years Location (where): Kidneys Severity (ex: creat 4.5, BP 200/100): CKD IIIa Quality (ex: sharp, dull): Chronic Context (ex: activity at onset or related to condition): Vomiting, NSAIDs Timing (ex: continuous, intermittent): Continuous Modifying factors (ex: medications, interventions): N/A Associated signs & symptoms (ex: edema, SOB): Vomiting, volume shifts PAST MEDICAL HISTORY: PAST MEDICAL HISTORY Diagnosis Date Psychiatric disorder Welders' keratitis of both eyes 06/18/2021 PAST SURGICAL HISTORY: No past surgical history on file. FAMILY HISTORY: No family history on file. SOCIAL HISTORY: Social History Tobacco Use Smoking status: Every Day Packs/day: 1.00 Types: Cigarettes Smokeless tobacco: Never Substance Use Topics Alcohol use: Not Currently Drug use: Never MEDICATIONS: buPROPion XL (WELLBUTRIN XL) 150 mg 24 hr tablet Take 150 mg by mouth once daily. Taking along with 300 mg for a total of 450 mg daily albuterol HFA (PROVENTIL HFA, VENTOLIN HFA) 90 mcg/actuation inhaler INHALE 2 PUFFS BY MOUTH EVERY 4 TO 6 HOURS NEEDED nicotine (NICODERM) 7 mg/24 hr Apply 1 Patch as directed every 24 hours. buPROPion XL (WELLBUTRIN XL) 300 mg 24 hr tablet Take 300 mg by mouth once daily. hydrOXYzine HCl (ATARAX) 25 mg tablet Take 25 mg by mouth three times daily as needed. QUEtiapine XR (SEROQUEL XR) 300 mg 24 hr tablet Take 300 mg by mouth daily at bedtime. ALLERGIES: ALLERGIES Allergen Reactions Bactrim [Sulfametho* Other: See Comments REVIEW OF SYSTEMS: Constitutional: No fevers, chills, weight loss Eyes: No loss in vision, photophobia Ear, Nose, and Throat: No epistaxis, nasal congestion Cardiovascular: No chest pain, BENÍTEZ, SOB, palpitations Respiratory: No cough, hemoptysis Gastrointestinal: No diarrhea, constipation Genitourinary: No dysuria, polyuria Musculoskeletal: No joint pain, morning stiffness Skin: No rash, no ulcers Neurological: No headaches, seizures, paresthesias Psychiatric: No depression, anxiety Endocrine: No hair loss, no heat intolerance Hematologic:No easy bruising, easy bleeding PHYSICAL EXAM: BP 121/91 Pulse 92 Ht 182.9 cm (6') Wt 103 kg (227 lb) BMI 30.79 kg/m Constitutional: No acute distress, Responsive, Normal habitus, and Well-nourished Eyes: Conjunctiva clear and PERRL Ear, Nose, and Throat: Hearing normal, Lips normal, and Dentition normal Neck:Trachea midline No jugular venous distension Cardiovascular:No peripheral edema Regular rate and ryhthm, normal S1 and S2, no murmurs, rubs, or gallops Respiratory: Normal respiratory effort. Lungs clear bilaterally. Abdomen:Soft, non-tender, non-distended. Normal bowel sounds. No hepatosplenomegaly. Musculoskeletal: No clubbing or cyanosis of digits., Normocephalic., and No muscle weakness, joint tenderness, or joint effusions. Neurologic:CN II-XII intact and Normal sensation Psychiatric: Alert and oriented x self, place, time, and setting Normal mood/affect DATA: Diagnostic tests reviewed for today's visit: Glucose (mg/dL) Date Value 06/17/2022 117 11/05/2020 115 Potassium (mmol/L) Date Value 06/17/2022 4.3 11/05/2020 3.1 Sodium (mmol/L) Date Value 06/17/2022 140 11/05/2020 144 Chloride (mmol/L) Date Value 06/17/2022 103 11/05/2020 108 CO2 (mmol/L) Date Value 06/17/2022 27 11/05/2020 26 Creatinine (mg/dL) Date Value 06/17/2022 1.58 11/05/2020 1.29 BUN (mg/dL) Date Value 06/17/2022 15 11/05/2020 16 Anion Gap (mmol/L) Date Value 06/17/2022 10 11/05/2020 10 Calcium (mg/dL) Date Value 11/05/2020 9.0 Calcium, Total (mg/dL) Date Value 06/17/2022 9.7 Protein, Total (g/dL) Date Value 05/16/2022 7.2 11/05/2020 6.0 Albumin (g/dL) Date Value 05/16/2022 4.7 11/05/2020 4.1 Bilirubin, Total (mg/dL) Date Value 05/16/2022 0.2 11/05/2020 <0.1 Alkaline Phosphatase (U/L) Date Value 05/16/2022 78 11/05/2020 90 AST (U/L) Date Value 05/16/2022 27 11/05/2020 16 ALT (U/L) Date Value 05/16/2022 45 11/05/2020 13 No results for input(s): COLOR, CLARITY, UGLUC, UBILI, UKET, SPGR, UHB, UPH, UPROT, NITRITES, LEUKEST, UWBC, URBC in the last 8784 hours. ASSESSMENT: Mr. Stephenson is a 37 year old male with a PMHx of bipolar disorder, GERD, tobacco abuse, and allergies who presents with chronic kidney disease stage IIIa. Acute kidney injury - JONATHAN in the setting of volume shifts in the setting of vomiting 3x daily. Unclear if elevated creatinine indicative of true CKD prior to acute illness Creatinine 1.3 [id number] which increased to 1.8 04/2022. Last creatinine 1.5 on 06/17/2022. No UA. US kidney/bladder with normal appearing kidneys Hep C negative HIV negative 2. Anemia of renal disease - Hemoglobin at goal 3. Secondary hyperparathyroidism - Calcium controlled 4. Primary hypertension - Blood pressure controlled off medications 5. GERD - Prilosec PLAN: - Renal labs today including cystatin C. Serologic workup as well - Follow up duration based on results above SIGNATURE: Jaime Gates DO PATIENT NAME: Mark Stephenson DATE: July 26, 2022 TIME: 12:46 PM OFFICE NUMBER: [phone] CC: REFERRING PROVIDER: No ref. provider found PRIMARY CARE PHYSICIAN: Kyrie Prince DO documented in this encounter [facility] 07-02-2022 Evaluation note Diagnosis Stage 3 chronic kidney disease, unspecified whether stage 3a or 3b CKD (HCC) documented in this encounter [facility]03-11-2023 Reason for referral (narrative)* Diagnostic Procedure Only (Routine) - Closed Specialty Diagnoses / Procedures Referred By Contac t Referred To Contact US IMAGING Diagnoses Stage 3 chronic kidney disease, unspecified whether stage 3a or 3b CKD (HCC) Procedures US KIDNEY/BLADDER US RETROPERITONEAL REAL TIME W/IMAGE COMPLETE Kyrie Prince DO [address] [facility] / [place] [address] Us Imaging Referral ID Status Reason Start Date Expiration Date V isits Requested Visits Authorized [id number] Closed Auto-Generate d Referral 06/20/2022 07/20/2023 1 1 [facility]03-11-2023 Reason for visit Narrative* Diagnostic Procedure Only (Routine) - Closed Specialty Diagnoses / Procedures Referred By Contac t Referred To Contact US IMAGING Diagnoses Stage 3 chronic kidney disease, unspecified whether stage 3a or 3b CKD (HCC) Procedures US KIDNEY/BLADDER US RETROPERITONEAL REAL TIME W/IMAGE COMPLETE Kyrie Prince DO [address] [facility] / [place] [id number] Us Imaging Referral ID Status Reason Start Date Expiration Date V isits Requested Visits Authorized [id number] Closed Auto-Generate d Referral 06/20/2022 07/20/2023 1 1 [facility]02-24-2023 Instructions* Patient Instructions* Kyrie Prince DO - 06/17/2022 9:14 AM EST Nurse visit hep b 2 months [facility] History of Present illness Narrative* Lexi Bear MA - 06/17/2022 8:56 AM EST HEPATITIS B(1 of 3 - 3-dose series) Never done PNEUMOCOCCAL(1 - PCV) Never done HEPATITIS C SCREENING Never done HIV SCREENING Never done LIPID SCREEN Never done * Kyrie PrinceDO - 06/17/2022 8:51 AM EST 37 year old male presenting for follow up I have fully reviewed the past medical, surgical, social and family history and updated the Histories section of Epic[facility] Abd pain improved Antibiotics appear to have worked. Patient is following GI, has upper and lower endoscopy scheduled. Continues to have intermittent nausea and vomiting, gastric emptying study was negative per patient. Patient is due for labs, did have elevated creatinine. Current Outpatient Medications on File Prior to Visit: Current Outpatient Medications Medication Sig Dispense Refill buPROPion XL (WELLBUTRIN XL) 150 mg 24 hr tablet Take 150 mg by mouth once daily. Taking along [id number] mg for a total of 450 mg daily prazosin (MINIPRESS) 1 mg cap daily at bedtime. albuterol HFA (PROVENTIL HFA, VENTOLIN HFA) 90 mcg/actuation inhaler INHALE 2 PUFFS BY MOUTH EVERY 4 TO 6 HOURS NEEDED nicotine (NICODERM) 7 mg/24 hr Apply 1 Patch as directed every 24 hours. 30 Patch 2 atomoxetine (STRATTERA) 10 mg capsule Take 10 mg by mouth once daily. omeprazole (PRILOSEC) 40 mg capsule Take 1 capsule by mouth once daily. 30 capsule 2 sucralfate (CARAFATE) 1 gram tablet Take 1 tablet by mouth four times daily. 120 tablet 3 buPROPion XL (WELLBUTRIN XL) 300 mg 24 hr tablet Take 300 mg by mouth once daily. hydrOXYzine HCl (ATARAX) 25 mg tablet Take 25 mg by mouth three times daily as needed. lurasidone (LATUDA) 80 mg tablet Take 80 mg by mouth. Pt states is taking 100mg QUEtiapine XR (SEROQUEL XR) 300 mg 24 hr tablet Take 300 mg by mouth daily at bedtime. perphenazine 2 mg tablet Take 2 mg by mouth twice daily. No current facility-administered medications for this visit. ALLERGIES Allergen Reactions Bactrim [Sulfametho* Other: See Comments No past surgical history on file. Social history [facility]. REVIEW OF SYSTEMS: Constitutional: Denies fever, denies chills, denies fatigue Head: Denies headache Eyes: Denies changes in vision or blurry vision Ears/Nose/Throat: Denies sore throat, denies rhinorrhea Musculoskeletal: Denies joint pain, denies myalgias Abd: No abd pain, vomiting, no diarrhea, nausea Skin/Breast: Denies rash or lesions Cardiovascular: Denies chest pain, denies palpitations, denies LE edema Respiratory: Denies cough, denies SOB, denies wheezing Neurological: Denies numbness, denies tingling, denies weakness PHYSICAL EXAMINATION: General appearance: Well appearing, alert, in no acute distress, well-hydrated, well nourished. Skin: no suspicious rashes or lesions Head: Normocephalic, atraumatic Eyes: Anicteric sclera. Pupils are equally round and reactive to light. Extraocular movements are intact. Ears: External ears normal, canals clear Nose/Sinuses: Nares normal, septum midline, mucosa normal, Oropharynx: Lips, mucosa, and tongue normal, good dentition, no pharyngeal erythema or exudates Neck: Supple, no adenopathy Lungs: Lungs clear to auscultation. No wheezing, rhonchi, rales. Heart: RRR without murmur, gallop, or rubs. Abdomen: Normal abdominal exam, Abdomen soft, non-tender. No masses Extremities: No deformities, no edema, no cyanosis. Musculoskeletal: No joint swelling, no deformity Neuro: Gait normal. Speech intact ASSESSMENT/PLAN: 1. Gastroesophageal reflux disease with esophagitis without hemorrhage - ICD9: 530.81, 530.10, ICD10: K21.00 (primary diagnosis) - OMEPRAZOLE 40 MG CAPSULE,DELAYED RELEASE 2. Encounter for immunization - ICD9: V03.89, ICD10: Z23 - PNEUMOCOCCAL VACCINE (PREVNAR 20) 3. Immunization due - ICD9: V05.9, ICD10: Z23 - PNEUMOCOCCAL VACCINE (PREVNAR 20) - HEPLISAV B (HEPATITIS B, ADJUVANT, ADULT) - HEPLISAV B (HEPATITIS B, ADJUVANT, ADULT) 4. Elevated serum creatinine - ICD9: 790.99, ICD10: R79.89 - recheck Check labs/bmp Consider renal US/nephro eval if persistently elevated Continue with GI workup Vincent Javier, DO Discussed with patient red flag symptoms. Discussed risks and benefits of treatment plan. Pt understands to seek appropriate evaluation for new or worsening symptoms. Patient understands and agrees with plan, all concerns and questions addressed. [facility] History of Present illness Narrative* Kyrie Prince DO - 05/26/2022 10:33 AM EST 37 year old male presenting for new patient exam. I have fully reviewed the past medical, surgical, social and family history and updated the Histories section of [facility]. Patient has a past medical history of bipolar disorder, on regimen per chart Patient reports over the past 2 to 3 weeks, has been experiencing some intermittent nausea vomiting, was previously experiencing diarrhea. Was seen by GI approximately 1 week ago, Stool samples, recommend colonoscopy with EGD. Taking Prilosec. Patient continues to have left lower quadrant abdominal pain, was vomiting this morning. Patient has no previous history of diverticulitis, has never previously had CTAP. Of note patient was noted to have mildly elevated creatinine at 1.8. Baseline 1.3. May have been prerenal, patient was reportedly nauseous vomiting diarrhea at this time. Current Outpatient Medications on File Prior to Visit: Current Outpatient Medications Medication Sig Dispense Refill buPROPion XL (WELLBUTRIN XL) 150 mg 24 hr tablet Take 150 mg by mouth once daily. Taking along [id number] mg for a total of 450 mg daily prazosin (MINIPRESS) 1 mg cap daily at bedtime. albuterol HFA (PROVENTIL HFA, VENTOLIN HFA) 90 mcg/actuation inhaler INHALE 2 PUFFS BY MOUTH EVERY 4 TO 6 HOURS NEEDED atomoxetine (STRATTERA) 10 mg capsule Take 10 mg by mouth once daily. omeprazole (PRILOSEC) 40 mg capsule Take 1 capsule by mouth once daily. 30 capsule 2 sucralfate (CARAFATE) 1 gram tablet Take 1 tablet by mouth four times daily. 120 tablet 3 buPROPion XL (WELLBUTRIN XL) 300 mg 24 hr tablet Take 300 mg by mouth once daily. hydrOXYzine HCl (ATARAX) 25 mg tablet Take 25 mg by mouth three times daily as needed. lurasidone (LATUDA) 80 mg tablet Take 80 mg by mouth. Pt states is taking 100mg QUEtiapine XR (SEROQUEL XR) 300 mg 24 hr tablet Take 300 mg by mouth daily at bedtime. nicotine (NICODERM) 7 mg/24 hr Apply 1 Patch as directed every 24 hours. 30 Patch 2 amoxicillin-clavulanic acid (AUGMENTIN) 875-125 mg per tablet Take 1 tablet by mouth every 12 hoursfor 7 days. 14 tablet 0 No current facility-administered medications for this visit. ALLERGIES Allergen Reactions Bactrim [Sulfametho* Other: See Comments No past surgical history on file. Social history reviewed in [employer]. REVIEW OF SYSTEMS: Constitutional: Denies fever, denies chills, denies fatigue Head: Denies headache Eyes: Denies changes in vision or blurry vision Ears/Nose/Throat: Denies sore throat, denies rhinorrhea Musculoskeletal: Denies joint pain, denies myalgias Abd: abd pain, vomiting, no diarrhea, no nausea Skin/Breast: Denies rash or lesions Cardiovascular: Denies chest pain, denies palpitations, denies LE edema Respiratory: Denies cough, denies SOB, denies wheezing Neurological: Denies numbness, denies tingling, denies weakness PHYSICAL EXAMINATION: General appearance: Well appearing, alert, in no acute distress, well-hydrated, well nourished. Skin: no suspicious rashes or lesions Head: Normocephalic, atraumatic Eyes: Anicteric sclera. Pupils are equally round and reactive to light. Extraocular movements are intact. Ears: External ears normal, canals clear Nose/Sinuses: Nares normal, septum midline, mucosa normal, Oropharynx: Lips, mucosa, and tongue normal, good dentition, no pharyngeal erythema or exudates Neck: Supple, no adenopathy Lungs: Lungs clear to auscultation. No wheezing, rhonchi, rales. Heart: RRR without murmur, gallop, or rubs. Abdomen: LLQ ttp, no guarding no rebound no acute abd Extremities: No deformities, no edema, no cyanosis. Musculoskeletal: No joint swelling, no deformity Neuro: Gait normal. Speech intact ASSESSMENT/PLAN: 1. Encounter for immunization - ICD9: V03.89, ICD10: Z23 (primary diagnosis) 2. Screening for lipid disorders - ICD9: V77.91, ICD10: Z13.220 - LIPID PANEL BASIC 3. Special screening examination for viral disease - ICD9: V73.99, ICD10: Z11.59 - HEP C AB IA W/CONF SCRN 4. Screening for HIV (human immunodeficiency virus) - ICD9: V73.89, ICD10: Z11.4 - HIV 1 2 COMBO(AG/AB),WITH REFLEX TO DIFFERENTIATION 5. Diverticulitis - ICD9: 562.11, ICD10: K57.92 - BASIC METABOLIC PNL - AMOXICILLIN 875 MG-POTASSIUM CLAVULANATE 125 MG TABLET Mild tenderness palpation of left lower quadrant, patient continues to have pain, did have an episode of vomiting this morning. Though overall appears well no acute distress. Patient is currently undergoing work-up by GI was previously seen last week. Patient follow-up in 2 to 3 weeks. Recheck BMP to determine that elevation creatinine was secondary to some nausea vomiting diarrhea at time of blood draw. 6. Obesity, Class I, BMI 30-34.9 - ICD9: 278.00, ICD10: E66.9 Stable - HGB A1C 7. Stage 3 chronic kidney disease, unspecified whether stage 3a or 3b CKD (HCC) - ICD9: 585.3, ICD10: N18.30 Recheck baseline Consider renal ultrasound, nephrology evaluation. Kyrie Prince DO Discussed with patient red flag symptoms. Discussed risks and benefits of treatment plan. Pt understands to seek appropriate evaluation for new or worsening symptoms. Patient understands and agrees with plan, all concerns and questions addressed. [facility] Instructions* Patient Instructions* Sangita Dolan APRN.[facility] - 05/16/2022 10:10 AM EST Images from the original note were not included. Bowel Preparation Instructions for: Miralax-Gatorade Preparations IF YOU DO NOT FOLLOW THESE DIRECTIONS, YOUR COLONOSCOPY WILL BE CANCELLED. Desir Instructions: Your bowel must be empty so that your doctor can clearly view your colon. Follow all of the instructions in this handout EXACTLY as they are written. Do NOT eat any solid food the ENTIRE day before your colonoscopy. Buy your bowel preparation at least 5 days before your colonoscopy. Four (4) Dulcolax laxative tablets containing 5mg of bisacodyl each (NOT Dulcolax stool softener) One (1) 8.3oz. bottle Miralax (238 grams) or generic equivalent 2 x 32oz. Bottles of Gatorade (NOT RED) Diabetic Patients: Use G2 (Gatorade 2) TRANSPORTATION on the Day of Your Exam A responsible adult MUST be present with you at Check In prior to your colonoscopy and REMAIN in the endoscopy area until you are discharged. You are NOT ALLOWED to drive, take a taxi or bus, or leave the Endoscopy Center ALONE. If you do not have a responsible intermodal owner operator truck driver (family member or friend) withyou to take you home, your exam cannot be done with sedation and will be cancelled. Please bring a list of all of your current medications, including any Kzlk-ovu-[id number] medications with you. Medications If you take insulin, diabetic medications or blood thinners such as Coumadin (warfarin), Plavix (clopidogrel), Ticlid (ticlopidine hydrochloride), Agrylin (anagrelide), Xarelto (Rivaroxaban), Pradaxa(Dabigatran), Eliquis (Apixaban), and Effient (Prasugrel). You MUST call the doctors who orders those medicines for instructions on altering the dosage before your colonoscopy. All other medications should be taken the day of the exam with a sip of water including ASPIRIN. Five (5) Days Before Your Colonoscopy Do NOT take medicines that stop diarrhea - such as Imodium, Kaopectate, or Pepto Bismol. Do NOT take fiber supplements - such as Metamucil, Citrucel, or Perdiem. Do NOT take products that contain iron - such as multi-vitamins (the label lists what is in the products). Three (3) Days Before Your Colonoscopy Do NOT eat high-fiber foods - such as popcorn, beans, seeds (flax, sunflower, quinoa), multigrain bread, nuts, salad/vegetables, or fresh and dried fruit. 1 Bowel Preparation Instructions for: Miralax-Gatorade Preparations One (1) Day Before Your Colonoscopy Only drink clear liquids the ENTIRE DAY before your colonoscopy. Do NOT eat any solid foods. Drink at least 8 ounces of clear liquids every hour after waking up. The clear liquids you can drink include: Clear Liquid (NO RED LIQUIDS) DO NOT DRINK Gatorade, Pedialyte or Powerade Clear broth or bouillon Coffee or tea (no milk or non-dairy creamer) Carbonated and non-carbonated soft drinks Krishna-Aid or other fruit flavored drinks Strained fruit juices (no pulp) Jell-O, popsicles, hard candy Water Alcohol Milk or non-dairy creamers Noodles or vegetables in soup Juice with pulp Liquid you cannot see through Do not use tobacco/vaping products Mix 1/2 of Miralax bottle (119 grams) in each 32 ounces of Gatorade bottle until dissolved. Keep cool in the refrigerator. DO NOT ADD ICE. The bowel preparation solution will be consumed in two parts. Part 1 5:00 PM - Evening before your colonoscopy Take 4 Dulcolax tablets. 6 PM - Evening before your colonoscopy Drink 32 oz. of the mixed solution. Drink an 8 oz. glass of bowel preparation every 15 minutes for a total of 4 glasses. Fifteen (15) minutes later, drink an 8 oz. glass of of clear liquids every 15 minutes for a total of 2 glasses. You may continue to drink clear liquids till midnight. Part 2 On the day of your colonoscopy you may drink clear liquids up to (three) 3 hours prior to procedure. 4 1/2 hours before your colonoscopy Take another 32 oz. bottle of mixed solution. Drink an 8 oz. glass of bowel prep every 15 minutes for a total of 4 glasses. Fifteen (15) minutes later, drink an 8 oz. glass of clear liquids every 15 minutes for a total of 2glasses. You may continue to drink clear liquids up to (three) 3 hours before your exam. PLAN - stool samples to rule out infection, bacteria - blood work to check electrolytes, thyroid, celiac disease, anemia, pancreas - gastric emptying study to rule out delayed digestion - EGD with biopsies with c/o acid reflux, N/V - Colonoscopy with change in bowel habits for the past 4-6 months - take prilosec daily 30-60 minutes before breakfast - Continue with carafate - patient education on managing acid reflux - referral to dermatology 2 03/2019 [place] [id number] History of Present illness Narrative* Sangita Dolan APRN.[facility] - 05/16/2022 9:30 AM EST DEPARTMENT OF GASTROENTEROLOGY - NEW PATIENT/CONSULT REASON FOR VISIT Mark Stephenson is a 37 year old male who is scheduled at the request of Jalen Good for N/V and GERD. My final recommendations will be communicated back to the requesting physician by the way of the shared medical record, fax, or via US Mail HISTORY OF PRESENT ILLNESS Mark Stephenson is a 37 year old male who presents today for an evaluation of N/VD and GERD Sx General he is consistently vomiting, has to pace himself to eat, if he eats fast he is in trouble, he has been taking pepcid - a bottle in a week. He is is trying to take Prilosec He has nausea and vomiting everyday, does use occasional zofran. No issues with swallowing. He is currently is taking prilosec before breakfast and carafate 4 times a day No fevers or chills He has tried zofran. His symptoms started 3-4 months ago, he did not have any new medications at the time, but he did change in psyche meds a month ago He has gained 30-40 lbs in the past year. He has not changed his diet. He now wakes at night = sleep eating. Pain no abdominal pain or rectal pain/ OTC supplements - pepcid. stopped vitamins Not using nutritional supplements at this time - he was drinking bang energy drinks in 2020 for a year straight (heavy in caffeine). Last energy drink was 6 months again. Stressors has bipolar disorder Has a lot of belching Heartburn - has burning sensation BM he has more frequent movement, 3 5 times a day,- liquid normally he has a bowel movement twice aday. No blood in the stool. no black stools Urinary complaints: none NSAIDS - take ibuprofen once in awhile Alcohol - quit 8 months ago Marijuana - none Smoker - pack a day Family Hx no family hx of colon cancer PAST MEDICAL HISTORY Diagnosis Date Psychiatric disorder Welders' keratitis of both eyes 06/18/2021 No past surgical history on file. Current Outpatient Medications Medication Sig Dispense Refill buPROPion XL (WELLBUTRIN XL) 300 mg 24 hr tablet Take 300 mg by mouth once daily. hydrOXYzine HCl (ATARAX) 25 mg tablet Take 25 mg by mouth three times daily as needed. lurasidone (LATUDA) 80 mg tablet Take 80 mg by mouth. QUEtiapine XR (SEROQUEL XR) 300 mg 24 hr tablet Take 300 mg by mouth daily at bedtime. No current facility-administered medications for this visit. ALLERGIES Allergen Reactions Bactrim [Sulfametho* Other: See Comments Social History Tobacco Use Smoking status: Every Day Packs/day: 1.00 Types: Cigarettes Smokeless tobacco: Never Substance Use Topics Alcohol use: Not Currently Drug use: Never REVIEW OF SYSTEMS Constitutional: Negative for fever, chills, and weight loss Eyes: Negative for vision changes and double vision ENT: Negative for ear pain, nasal discharge, and sore throat Heart: Negative for chest pain Lungs: occasional, has albuterol GI: See above Musculoskeletal: has neck and back pain Neuro: Negative for numbness and tingling Skin: has a rash on his upper torse and right neck Hematologic/Lymphatic: Negative for unusual bruising, bleeding, and swelling Psych: positive for anxiety and depression PHYSICAL EXAMINATION 05/16/22 0932 Weight: 103 kg (227 lb 1.6 oz) Height: 185.4 cm (6' 1) General appearance: Appears well, alert, in no acute distress, well nourished. Skin: Skin color and temperature normal. No obvious rashes or lesions noted on exposed skin. Head: Normocephalic, atraumatic. No masses or lesions noted. Eyes: Anicteric sclera. Pupils are equally round and reactive. Ears: External ears normal Nose/Sinuses: Nares normal, no drainage Lungs: CTAB. Normal effort Heart: regular rate and rhythm Abdomen: Soft, non-distended. Bowel sounds present. . mild left lower discomfort Extremities: No deformities, discoloration, or pitting pedal edema noted. Psych: Pleasant affect, cooperative, A+O x3. RECENT LABS CBC: WBC (k/uL) Date Value 11/05/2020 7.97 Hematocrit (%) Date Value 11/05/2020 37.7 (L) MCV (fL) Date Value 11/05/2020 89.8 Platelet Count (k/uL) Date Value 11/05/2020 286 Lymph% (%) Date Value 11/05/2020 37.3 Comprehensive Metabolic Panel: Glucose (mg/dL) Date Value 11/05/2020 115 (H) BUN (mg/dL) Date Value 11/05/2020 16 Creatinine (mg/dL) Date Value 11/05/2020 1.29 (H) Sodium (mmol/L) Date Value 11/05/2020 144 Potassium (mmol/L) Date Value 11/05/2020 3.1 (L) Chloride (mmol/L) Date Value 11/05/2020 108 (H) CO2 (mmol/L) Date Value 11/05/2020 26 Protein, Total (g/dL) Date Value 11/05/2020 6.0 (L) Albumin (g/dL) Date Value 11/05/2020 4.1 Calcium (mg/dL) Date Value 11/05/2020 9.0 Alkaline Phosphatase (U/L) Date Value 11/05/2020 90 Bilirubin, Total (mg/dL) Date Value 11/05/2020 <0.1 (L) AST (U/L) Date Value 11/05/2020 16 ALT (U/L) Date Value 11/05/2020 13 Assessment IMPRESSION Mr. Stephenson is a 37 year old male who presents with multiple gi complaints, N/V, GERD, diarrhea.. PLAN - stool samples to rule out infection, bacteria - blood work to check electrolytes, thyroid, celiac disease, anemia, pancreas - gastric emptying study to rule out delayed digestion - EGD with biopsies with c/o acid reflux, N/V - Colonoscopy with change in bowel habits for the past 4-6 months - take prilosec daily 30-60 minutes before breakfast - Continue with carafate - patient education on managing acid reflux - referral to dermatology I spent a total of 35 minutes on the date of the service which included preparing to see the patient, [id number] patient care, completing clinical documentation, performing a medically appropriate examination, counseling and educating the patient/family/caregiver, and ordering medications, tests,or procedures. Plan is to follow up after test(s) Sangita Dolan APRN.CNP May 11, 2022 9:12 AM [facility] Diagnosis Nausea and vomiting in adult- Primary Nausea with vomiting Gastroesophageal reflux disease, unspecified whether esophagitis present Dyspepsia Dyspepsia and other specified disorders of function of stomach Change in bowel habits Other symptoms involving digestive system Diarrhea, unspecified type Skin rash Rash and other nonspecific skin eruption documented in this encounter [facility]* Diagnosis Encounter for immunization- Primary Need for other specified prophylactic vaccination against single bacterial disease Screening for lipid disorders Special screening examination for viral disease Special screening examination for unspecified viral disease Screening for HIV (human immunodeficiency virus) Special screening examination for other specified viral diseases Diverticulitis Diverticulitis of colon (without mention of hemorrhage) Obesity, Class I, BMI 30-34.9 Obesity, unspecified Stage 3 chronic kidney disease, unspecified whether stage 3a or 3b CKD (HCC) Bipolar affective disorder, remission status unspecified ([facility]) documented in this encounter [facility]* Diagnosis Gastroesophageal reflux disease with esophagitis without hemorrhage- Primary Encounter for immunization Need for other specified prophylactic vaccination against single bacterial disease Immunization due Need for prophylactic vaccination and inoculation against unspecified single disease Elevated serum creatinine Other nonspecific findings on examination of blood documented in this encounter [facility]* Diagnosis Elevated serum creatinine- Primary Other nonspecific findings on examination of blood JONATHAN (acute kidney injury) (HCC) Acute kidney failure, unspecified Anemia of renal disease Anemia in chronic kidney disease Secondary renal hyperparathyroidism (HCC) Secondary hyperparathyroidism (of renal origin) Primary hypertension Unspecified essential hypertension Gastroesophageal reflux disease, unspecified whether esophagitis present [facility] Diagnosis Gastroesophageal reflux disease with esophagitis without hemorrhage- Primary [facility] in [facility] note* Diagnosis Testicular discomfort- Primary Unspecified disorder of male genital organs documented in this encounter [facility] note* Diagnosis Testicular discomfort Unspecified disorder of male genital organs [facility] Diagnosis Heartburn- Primary Gastroesophageal reflux disease with esophagitis without hemorrhage documented in this encounter [facility] note* Diagnosis Urinary problem- Primary Other urinary problems Blood in stool documented in this encounter [facility] note* Diagnosis Gastroesophageal reflux disease with esophagitis without hemorrhage documented in this encounter [facility] for referral (narrative)* Outpatient Procedure (Routine) - Pending Review Specialty Diagnoses / Procedures Referred By Contac t Referred To Contact [facility] Diagnoses Gastroesophageal reflux disease with esophagitis without hemorrhage Procedures EGD DIAGNOSTIC ESOPHAGOGASTRODUODENOSC OPY TRANSORAL DIAGNOSTIC Antonio Pacheco MD [address] [place] [address] [facility] [place] [address] [place] [phone] Referral ID Status Reason Start Date Expiration Date Visits Requested Visits Authorized [id number] Pending Review Auto-Generat ed Referral 11/29/2022 09/28/2023 1 1 T [facility] for referral (narrative)* Diagnostic Procedure Only (Urgent) - Authorized Specialty Diagnoses / Procedures Referred By [facility] Referred To Contact [facility] Diagnoses Testicular discomfort Procedures US SCROTUM AND CONTENTS US SCROTUM & CONTENTS Kyrie Prince DO [address] [facility] / [place] [address] [facility] Imaging Referral ID Status Reason Start Date Expiration Date Visits Requested Visits Authorized [id number] Authorized Auto-Generat ed Referral 11/29/2022 12/29/2023 1 1 T [facility] for referral (narrative)* Diagnostic Procedure Only (Urgent) - Closed Specialty Diagnoses / Procedures Referred By [facility] Referred To Contact [facility] Diagnoses Testicular discomfort Procedures US SCROTUM AND CONTENTS US SCROTUM & CONTENTS Kyrie Prince DO [address] [facility] / [place] [phone] [facility] Referral ID Status Reason Start Date Expiration Date V isits Requested Visits Authorized [id number] Closed Auto-Generate d Referral 11/29/2022 12/29/2023 1 1 [facility] for referral (narrative)* Outpatient Procedure (Routine) - Closed Specialty Diagnoses / Procedures Referred By [facility] Referred To Contact [facility] Diagnoses Gastroesophageal reflux disease with esophagitis without hemorrhage Procedures EGD DIAGNOSTIC ESOPHAGOGASTRODUODENOSC OPY TRANSORAL DIAGNOSTIC Antonio Pacheco MD [address] [place] [address] [facility] [place] [phone] Referral ID Status Reason Start Date Expiration Date V isits Requested Visits Authorized [id number] Closed Auto-Generate d Referral 11/29/2022 09/28/2023 1 1 [facility] for visit Narrative* Diagnostic Procedure Only (Urgent) - Closed Specialty Diagnoses / Procedures Referred By Edd mccabe Referred To Contact [facility] Diagnoses Testicular discomfort Procedures US SCROTUM AND CONTENTS US SCROTUM & CONTENTS Kyrie Prince DO [address] [place] [address] / [place] [address] Us Imaging Referral ID Status Reason Start Date Expiration Date V isits Requested Visits Authorized [id number] Closed Auto-Generate d Referral 11/29/2022 12/29/2023 1 1 [facility] for visit Narrative* Outpatient Procedure (Routine) - Closed Specialty Diagnoses / Procedures Referred By Edd mccabe Referred To Contact [facility] Diagnoses Gastroesophageal reflux disease with esophagitis without hemorrhage Procedures EGD DIAGNOSTIC ESOPHAGOGASTRODUODENOSC OPY TRANSORAL DIAGNOSTIC Antonio Pacheco MD [address] [place] [address] [facility] [place] [address] [place], [place] [phone] Referral ID Status Reason Start Date Expiration Date V isits Requested Visits Authorized [id number] Closed Auto-Generate d Referral 11/29/2022 09/28/2023 1 1 [facility] Summary Purpose Family History No Family History Records FoundNo Family History Records FoundNo Family History Records FoundNo Family History Records FoundNo Family History Records FoundNo Family History Records Found Advance Directives No Advanced Directives Records FoundNo Advanced Directives Records FoundNo Advanced Directives Records FoundNo Advanced Directives Records FoundNo Advanced Directives Records FoundNo Advanced Directives Records Found Reason for Referral Specialty Diagnoses / Procedures Referred By Edd mccabe Referred To Contact Dermatology Diagnoses Skin rash Procedures CONSULT TO DERMATOLOGY Sangita Dolan APRN.[employer] [address] [place] [address] Referral ID Status Reason Start Date Expiration Date Visits Requested Visits Authorized [id number] Ref Not Required PCP Requested Referral 05/16/2022 05/16/2023 1 1 Specialty Diagnoses / Procedures Referred By Contac t Referred To Contact [facility] Diagnoses Gastroesophageal reflux disease, unspecified whether esophagitis present Dyspepsia Nausea Procedures NM GASTRIC EMPTYING SOLID GASTRIC EMPTYING STUDY Sangita Dolan APRN.[employer] [address] [place] [address] [facility] [address] [place] [phone] Referral ID Status Reason Start Date Expiration Date Visits Requested Visits Authorized [id number] Authorized Auto-Generat ed Referral 05/16/2022 06/15/2023 1 1 Specialty Diagnoses / Procedures Referred By Contac t Referred To Contact [facility] Diagnoses Change in bowel habits Diarrhea, unspecified type Procedures COLONOSCOPY DIAGNOSTIC COLONOSCOPY FLX DX W/COLLJ SPEC WHEN PFRMD Sangita Dolan APRN.[employer] [address] [place] [address] [facility] [place] [address] [place] [address] Referral ID Status Reason Start Date Expiration Date Visits Requested Visits Authorized [id number] Authorized Auto-Generat ed Referral 05/16/2022 05/16/2023 1 1 Specialty Diagnoses / Procedures Referred By Contac t Referred To Contact [facility] Diagnoses Nausea and vomiting in adult Gastroesophageal reflux disease, unspecified whether esophagitis present Dyspepsia Procedures EGD DIAGNOSTIC ESOPHAGOGASTRODUODENOSC OPY TRANSORAL DIAGNOSTIC Sangita Dolan APRN.[employer] [address] [place] [address] [facility] [place] [address] [place] [address] Referral ID Status Reason Start Date Expiration Date Visits Requested Visits Authorized [id number] Authorized Auto-Generat ed Referral 05/16/2022 05/16/2023 1 1 Specialty Diagnoses / Procedures Referred By Contac t Referred To Contact Gastroenterology Diagnoses Blood in stool Procedures CONSULT TO GASTROENTEROLOGY OFFICE/OUTPATIENT [facility] 60 MINUTES Kyrie Prince, [address] [facility] / [place] [address] Referral ID Status Reason Start Date Expiration Date Visits Requested Visits Authorized [id number] Authorized PCP Requested Referral 03/01/2024 03/01/2025 1 1 Specialty Diagnoses / Procedures Referred By Contac t Referred To Contact Urology Diagnoses Urinary problem Procedures CONSULT TO UROLOGY OFFICE/OUTPATIENT [facility] 60 MINUTES Kyrie Prince, [address] [facility] / [place] [address] Referral ID Status Reason Start Date Expiration Date Visits Requested Visits Authorized [id number] Authorized PCP Requested Referral 03/01/2024 03/01/2025 1 1 Medications Administered Section Inactive Administered Medications - up to 3 most recent administrations Medication Order MAR Action Action Date Dose Rate Site lactated ringers iv infusion 30 mL/hr, INTRAVENOUS, CONTINUOUS, Starting on Mon01/18/23 at 0830, Until Mon01/18/23 at 0854, Preprocedure Restarted 01/18/2023 8:33 AM EDT New Bag/Syringe/Bottle 01/18/2023 8:21 AM EDT 30 mL/hr 3 0 mL/hr Additional Source Comments (unrecognized sect ion and content) No Status Records FoundNo Status Records FoundNo Status Records FoundNo Status Records FoundNo Status Records FoundNo Status Records Found INFORMATION SOURCE (unrecogn ized section and content) DATE CREATED AUTHOR 06/30/2020 [facility] DATE CREATED AUTHOR AUTHOR'S ORGANIZ ATION 06/30/2020 [employer] DATE CREATED AUTHOR AUTHOR'S ORGANIZ ATION 06/17/2021 [facility] DATE CREATED AUTHOR AUTHOR'S ORGANIZ ATION 05/11/2024 [facility] DATE CREATED AUTHOR AUTHOR'S ORGANIZ ATION 07/13/2024 [facility] DATE CREATED AUTHOR AUTHOR'S ORGANIZ ATION 11/05/2024 [facility] Source Comments (unrecognize d section and content) In the event this informatio n is protected by the Federal Confidentiality of Alcohol and Drug Abuse Patient Records regulations: The Federal rules restrict any use of the information to criminally investigate or prosecute any alcohol or drug abuse patient.[facility] the event this information is protected by the Federal Confidentiality of Alcohol and Drug Abuse Patient Records regulations: The Federal rules restrict any use of the information to criminally investigate or prosecute any alcohol or drug abuse patient.[facility] the event this information is protected by the Federal Confidentiality of Alcohol and Drug Abuse Patient Records regulations: The Federal rules restrict any use of the information to criminally investigate or prosecute any alcohol or drug abuse patient.[facility] the event this information is protected by the Federal Confidentiality of Alcohol and Drug Abuse Patient Records regulations: The Federal rules restrict any use of the information to criminally investigate or prosecute any alcohol or drug abuse patient.[facility] the event this information is protected by the Federal Confidentiality of Alcohol and Drug Abuse Patient Records regulations: The Federal rules restrict any use of the information to criminally investigate or prosecute any alcohol or drug abuse patient.[facility] the event this information is protected by the Federal Confidentiality of Alcohol and Drug Abuse Patient Records regulations: The Federal rules restrict any use of the information to criminally investigate or prosecute any alcohol or drug abuse patient.[facility] the event this information is protected by the Federal Confidentiality of Alcohol and Drug Abuse Patient Records regulations: The Federal rules restrict any use of the information to criminally investigate or prosecute any alcohol or drug abuse patient.[facility] the event this information is protected by the Federal Confidentiality of Alcohol and Drug Abuse Patient Records regulations: The Federal rules restrict any use of the information to criminally investigate or prosecute any alcohol or drug abuse patient.[facility] the event this information is protected by the Federal Confidentiality of Alcohol and Drug Abuse Patient Records regulations: The Federal rules restrict any use of the information to criminally investigate or prosecute any alcohol or drug abuse patient.[facility] the event this information is protected by the Federal Confidentiality of Alcohol and Drug Abuse Patient Records regulations: The Federal rules restrict any use of the information to criminally investigate or prosecute any alcohol or drug abuse patient.[facility] the event this information is protected by the Federal Confidentiality of Alcohol and Drug Abuse Patient Records regulations: The Federal rules restrict any use of the information to criminally investigate or prosecute any alcohol or drug abuse patient.[facility] the event this information is protected by the Federal Confidentiality of Alcohol and Drug Abuse Patient Records regulations: The Federal rules restrict any use of the information to criminally investigate or prosecute any alcohol or drug abuse patient.[facility] the event this information is protected by the Federal Confidentiality of Alcohol and Drug Abuse Patient Records regulations: The Federal rules restrict any use of the information to criminally investigate or prosecute any alcohol or drug abuse patient.[facility] the event this information is protected by the Federal Confidentiality of Alcohol and Drug Abuse Patient Records regulations: The Federal rules restrict any use of the information to criminally investigate or prosecute any alcohol or drug abuse patient.[facility] the event this information is protected by the Federal Confidentiality of Alcohol and Drug Abuse Patient Records regulations: The Federal rules restrict any use of the information to criminally investigate or prosecute any alcohol or drug abuse patient.[facility] the event this information is protected by the Federal Confidentiality of Alcohol and Drug Abuse Patient Records regulations: The Federal rules restrict any use of the information to criminally investigate or prosecute any alcohol or drug abuse patient.[facility] Reason for Visit (unrecogniz ed section and content) Reason Comments GERD Has been having a lo t of issues with gerd, has to take pills one at a time to prevent vomiting. Early Satiety but has gained a lot of weight over the last year. Reason Comments Establish Care Reason Comments Follow Up 3 week follow up sti ll vomiting at night Reason Comments New Patient Reason Comments Testicular Pain Left side testicular pain for 2 weeks, urine pressure not the same, taking longer to empty bladder Constipation On and off for 2 wee ks Perspiration Sweating more than u sual for the last month, with minimal activity. Reason Comments Rectal Bleeding Lots of blood in the toilet and when wiping Urinary Problem Urgency, feels like he has to go but does not void very much. Reason Comments Appointment Rectal bleeding Reason Comments Patient Update Reason Comments Refill Request Reason Onset Date Comments Population Health Navigation Outreach 10/10/2024 PCP Offboarding - Dr. Kyrie Prince Reason Onset Date Comments Population Health Navigation Outreach 10/31/2024 PCP Offboarding - Dr. Kyrie Prince Care Teams (unrecognized sec tion and content) Hospice Registered Nurse Relationship Specialty Start Date End Date Kyrie Prince DO [address] [facility] [place] [address] PCP - General Family Medicine 05/26/22 Hospice Registered Nurse Relationship Specialty Start Date End Date Kyrie Prince DO [address] [facility] [place], [place] [phone] PCP - General Family Medicine 05/26/22 Hospice Registered Nurse Relationship Specialty Start Date End Date Kyrie Prince DO [address] [facility] [place], [place] [phone] PCP - General Family Medicine 05/26/22 Hospice Registered Nurse Relationship Specialty Start Date End Date Kyrie Prince DO [address] [facility] / [place] [address] PCP - General Family Medicine 05/26/22 Hospice Registered Nurse Relationship Specialty Start Date End Date Kyrie Prince DO [address] [facility] / [place] [address] PCP - General Family Medicine 05/26/22 Hospice Registered Nurse Relationship Specialty Start Date End Date Kyrie Prince DO [address] [place] [address] PCP - General Family Medicine 05/26/22 Hospice Registered Nurse Relationship Specialty Start Date End Date Kyrie Prince DO [address] [place] [address] PCP - General Family Medicine 05/26/22 Hospice Registered Nurse Relationship Specialty Start Date End Date Kyrie Prince DO [address] [place] [address] PCP - General Family Medicine 05/26/22 Hospice Registered Nurse Relationship Specialty Start Date End Date Kyrie Prince DO [address] [facility] / [place] [address] PCP - General Family Medicine 05/26/22 Hospice Registered Nurse Relationship Specialty Start Date End Date Kyrie Prince DO [address] [place] [address] PCP - General Family Medicine 05/26/22 Hospice Registered Nurse Relationship Specialty Start Date End Date Kyrie Prince DO [address] [place] [address] PCP - General Family Medicine 05/26/22 Stefania Lilly, SOTERO.[employer] [address] [place] [address] [employer] [facility] 03/30/24 Hospice Registered Nurse Relationship Specialty Start Date End Date Kyrie Prince DO [address] [place] [address] PCP - General Family Medicine 05/26/22 Stefania Lilly, S[employer]ERO[employer] [address] [place] [address] [employer] [facility] 03/30/24 Hospice Registered Nurse Relationship Specialty Start Date End Date Kyrie Prince DO [address] [place] [address] PCP - General Family Medicine 05/26/22 Stefania Lilly, S[employer]ERO.[employer] [address] [place] [address] [employer] [facility] 03/30/24 Hospice Registered Nurse Relationship Specialty Start Date End Date Kyrie Prince DO [address] [place] [address] PCP - General Family Medicine 05/26/22 12/27/24 Stefania Lilly, S[employer]ERO.[employer] [address] [place] [address] [employer] [facility] 03/30/24 Hospice Registered Nurse Relationship Specialty Start Date End Date Chuy Haney MD [address] [place] [address] PCP - General Family Medicine 10/31/24 Stefania Lilly APRN.CNP [address] [place] [address] [employer] [facility] 03/30/24 FOR RECORDS PERTAINING TO PATIENTS WHO ARE OR HAVE BEEN ENROLLED IN A CHEMICAL DEPENDENCY/SUBSTANCEABUSE PROGRAM, SOME INFORMATION MAY BE OMITTED. This clinical summary was aggregated from multiple sources. Caution should be exercised in using it in the provision of clinical care. This summary normalizes information from multiple sources, and as a consequence, information in this document may materially change the coding, format and clinical context of patient data. In addition, data may be omitted in some cases. CLINICAL DECISIONS SHOULD BE BASED ON THE PRIMARY CLINICAL RECORDS. [employer] [facility] provides no warranty or guarantee of the accuracy or completeness of information in this document.
[2025-04-18 14:42] LABS: Hematocrit 41.8 % (40-54); Hemoglobin 14.1 g/dL (13.0-16.5); Immature Granulocytes Count 0.020 X10^3/uL (0.0-0.0); Mean Corp Hgb Conc 33.7 g/dL (32-36); Mean Corpuscular Volume 87.8 fL (80-94); Mean Platelet Vol. 8.2 fl (6.2-12.0); NRBC Flagged by Analyzer 0 % (0-5); Platelet Count 304 K/mm3 (150-450); RBC Distribution Width CV 12.7 % (11.6-14.6); RBC Distribution Width SD 41.0 fl (35.1-43.9); Red Blood Count 4.76 M/mm3 (4.6-6.2); White Blood Count 6.5 K/mm3 (4.4-11.0)
[2025-04-18 14:46] LABS: Prothrombin Time (Protime)PT. 11.5 SECONDS (11.7-14.9)
[2025-04-18 14:47] LABS: Partial Thromboplast Time 30.4 Seconds (24.1-36.2)
--- NOTE | 2025-04-18 15:02 | RAD_ITS ---
PROCEDURE: CHEST 1 VIEW (PORTABLE) 04/18/2025 REASON FOR EXAM: CHEST PAIN TECHNIQUE: Frontal view of the chest. COMPARISON: None FINDINGS: Hardware: Cardiac leads overlie the chest. Heart: Heart size and configuration are within normal limits. Pulmonary vasculature: Pulmonary vasculature is within normal limits. Lungs: Lungs are expanded and clear without evidence of atelectasis, consolidation, effusion or pneumonic infiltrate. There are no pneumothoraces. Bones: Normal mineralization of the osseous structures is noted. No acute osseous abnormality is noted. RAD/Chest 1 View (Portable) IMPRESSION: No acute cardiopulmonary process is identified radiographically. Reading Location: [id number]
[2025-04-18 15:12] LABS: AST(SGOT) 23 U/L (<=37); Alanine Aminotransfer ALT/SGPT 21 U/L (<=46); Albumin, Serum 4.6 g/dL (3.5-5.0); Alkaline Phosphatase 82 U/L (40-129); Anion Gap 12 (7-18); BUN 13 mg/dL (4-19); BUN/Creat Ratio 9.2 RATIO (10-20); Bilirubin, Direct 0.12 mg/dL (0.00-0.30); Calcium,Total 9.9 mg/dL (7.6-11.0); Carbon Dioxide 26.4 mmol/L (20.0-29.0); Chloride 103 mmol/L (96-106); Estimated Creatinine Clearance 78.93 ml/min (50-250); Globulin 2.7 g/dL (2.2-4.2); Glucose 107 mg/dL (70-99); Potassium 3.5 mmol/L (3.5-5.1); Troponin T High Sensitivity 12 ng/L (<=22)
--- NOTE | 2025-04-18 16:15 | ED.VIS.STROK ---
HPI History of Present Illness Chief Complaint: Stroke Alert Informant: patient Narrative Narrative: 40-year-old male presenting to the emergency room in a stroke team was called from triage. Patient tells me that this morning he blew his nose really hard and his nose swelled. He states that few weeks ago he did some methamphetamines and had a severe anxiety attack. He states he used to do methamphetamines quite a bit and it unlocks his schizo affective disorder. He tells me that he looked up his nose and saw some swelling began to hyperventilate and feel tingling in his right foot so that when he walked it felt like it was walking on it side. He also notes some tingling in his left hand. States now he is having vision loss laterally of the right eye. Patient states he feels nauseated. [facility] Medical History Chest pain Hypertension Schizoaffective disorder Bipolar disorder Home Medications ?Medication ?Instructions ?Recorded ?Last Taken ?Type risperidone 2 mg tablet 2 mg PO QHS 04/18/25 Unknown History Allergy/AdvReac Type Severity Reaction Status Date / Time sulfamethoxazole (From Allergy Severe Anaphylaxis Verified 04/18/25 14:24 Bactrim) trimethoprim (From Bactrim) Allergy Severe Anaphylaxis Verified 04/18/25 14:24 Social History Smoking Status: Current some day smoker tobacco type: cigarettes ROS ROS ED Constitutional Constitutional ED: Denies chills or weight loss Eyes Eyes: Reports change in vision; Denies diplopia ENT ENT ED: Denies ear pain, rhinorrhea or sore throat Cardiovascular Cardiovascular: Denies chest pain, orthopnea, palpitations or racing heartbeat Respiratory/Chest Respiratory/Chest: Reports dyspnea; Denies cough or orthopnea Gastrointestinal Gastrointestinal: Reports nausea; Denies abdominal pain, diarrhea or vomiting Genitourinary Genitourinary ED: Denies dysuria, hematuria or urinary frequency Musculoskeletal Musculoskeletal: Denies arthralgias or myalgias Integumentary Denies abscess or rash Neurologic Neurologic: Reports paresthesias; Denies headache(s) or weakness Psychiatric Psychiatric: Denies anxiety, depression, suicidal ideation or suicidal thoughts Endocrine Endocrinology: Denies polydipsia, polyphagia or polyuria Allergic/Immunologic Allergic/Immunologic ED: Denies mouth swelling, tongue swelling or urticaria EXAM Physical Exam Narrative Exam Narrative: Patient appears to be having a panic attack. He is hyperventilating. He is unable to sit still. Const Vital Signs: 04/18/25 14:21 04/18/25 14:24 04/18/25 15:11 Temperature 97.4 F L Temperature Source Temporal Pulse Rate 112 H 108 H Respiratory Rate 25 H Blood Pressure 167/106 H Blood Pressure Mean 126 Pulse Ox 100 100 Oxygen Delivery Method Room Air Room Air 04/18/25 15:15 04/18/25 15:30 04/18/25 15:45 Temperature Temperature Source Pulse Rate 86 84 97 Respiratory Rate 12 22 H 17 Blood Pressure Blood Pressure Mean Pulse Ox 100 90 100 Oxygen Delivery Method 04/18/25 15:48 04/18/25 16:00 Temperature Temperature Source Pulse Rate 87 83 Respiratory Rate 11 L 12 Blood Pressure 138/93 H 124/86 H Blood Pressure Mean 106 95 Pulse Ox 99 100 Oxygen Delivery Method Positive well nourished and well developed General Appearance ED: well developed HEENT Reports normocephalic, head/scalp atraumatic and moist mucous membranes Eyes PERRL and EOMs intact bilaterally Neck no lymphadenopathy, supple and no JVD Resp clear to auscultation bilaterally Resp Narrative: Tachypneic Cardio regular rate, regular rhythm and no murmurs Rate: tachycardic GI normal to inspection, nondistended, normoactive bowel sounds and non-tender Palpation: soft Back/Spine no CVA tenderness and normal ROM Extremity normal to inspection General Extremety ED: Negative for edema General Extremity: Negative for edema Neuro oriented x3 and CN's II-XII intact bilaterally [place] Coma Scale: document GCS findings Spontaneous Obeys Commands Oriented 15 Sensorium / Orientation: alert, oriented to person, oriented to place and oriented to time Speech: speech normal Gait (Neuro): normal gait Sensory Exam: No sensory level loss detected Motor Exam: strength 5/5 throughout Psych Attitude: agitated Mood & Affect: anxious; Negative for depressed or tearful Skin no rashes or lesions noted and no wounds MDM MDM MDM Narrative Medical decision making narrative: Differential diagnosis includes ischemic stroke hemorrhagic stroke aneurysm large vessel occlusion malignancy facial fractures arterial and venous thrombosis of the eye panic disorder electrolyte abnormalities methamphetamine use Head CT and CTA was obtained and is negative. Facial CT does not demonstrate any acute fractures or subcutaneous emphysema. Basic blood work is essentially negative creatinine noted to be 1.42. Patient received Zofran and Ativan. Heart rate is down into the 80s blood pressure is improved. He is less anxious. I went back and talked with him about the above results. Patient became tachycardic and anxious again. Clinically I think the patient is less likely to have had a stroke. His symptomology has resolved. Patient is encouraged to follow-up with primary care. Would recommend avoidance of any methamphetamines. He was unable to give us any urine specimen to check for active use.. History & Record Review Discussion w/independent historian: Patient Additional record(s) reviewed:: Prior ED visit and Prior labs Lab Data Attestation: I reviewed the patient's lab results. Labs: Laboratory Results - last 24 hr 04/18/25 04/18/25 14:23 14:25 WBC 6.5 RBC 4.76 Hgb 14.1 Hct 41.8 MCV 87.8 MCH 29.6 MCHC 33.7 RDW Std Deviation 41.0 RDW Coeff of [place] 12.7 Plt Count 304 MPV 8.2 Immature Gran % (Auto) 0.300 Neut % (Auto) 42.1 L Lymph % (Auto) 42.8 H [place] % (Auto) 10.5 H Eos % (Auto) 3.4 Baso % (Auto) 0.9 Absolute Neuts (auto) 2.7 Absolute Lymphs (auto) 2.76 Nucleated RBC % 0 PT 11.5 L INR 0.8 APTT 30.4 Sodium 141 Potassium 3.5 Chloride 103 Carbon Dioxide 26.4 Anion Gap 12 BUN 13 Creatinine 1.42 H Estim Creat Clear Calc 78.93 Est GFR (MDRD) Non-Af 64 BUN/Creatinine Ratio 9.2 L Glucose 107 H Calcium 9.9 Total Bilirubin 0.22 Direct Bilirubin 0.12 AST 23 ALT 21 Alkaline Phosphatase 82 Troponin T High Sens 12 Total Protein 7.3 Albumin 4.6 Globulin 2.7 POC Glucose 117 H Radiography Diagnostic Testing: Clinical Impression(s) from Imaging Studies Brain CT 04/18/25 14:28 IMPRESSION: No acute intracranial process. Consider MR if symptoms persist. Reading Location: [facility] Facial/Sinus 04/18/25 14:28 IMPRESSION: No acute injury to the facial bones. Reading Location: [facility] Head/Neck CTA 04/18/25 14:28 IMPRESSION: No hemodynamically significant stenosis in the head and neck. Reading Location: [facility] Chest X-Ray 04/18/25 15:02 IMPRESSION: No acute cardiopulmonary process is identified radiographically. Reading Location: [facility] EKG Initial EKG: Attestation: I personally reviewed and interpreted this EKG as follows: Comments: Sinus tachycardia ventricular rate of 108 bpm Discharge Plan Triage Chief Complaint: Stroke Alert Other Complaint: Neuro S/Sx ED Provider: Aneudy Edwards Dx/Rx/DC Orders Clinical Impression: Anxiety reaction, Alteration in vision, Paresthesias Instructions: Your Body's Response to Anxiety, ED Paresthesia Prescriptions: No Action risperidone 2 mg tablet 2 mg PO QHS Primary Care Provider: Care Physician,No Primary Referrals: Willie Crespo MD [Med Staff - [facility]] - As soon as possible Referral Note: call to arrange follow up for todays visit Care Physician,No Primary [Primary Care Provider, Medical] Print Language: Vietnamese Disposition Disposition: Home, Self Care NIHSS NIHSS 1a. Level of Consciousness: 0 - Alert; keenly responsive 1b. LOC Questions: 0 - Answers BOTH questions correctly 1c. LOC Commands: 0 - Performs BOTH tasks correctly 2. Best Gaze: 0 - Normal 3. Visual: 1 - Partial hemianopia 4. Facial Palsy: 0 - Normal symmetrical movements 5a. Left Arm: 0 - No drift; arm holds 90 (or 45) degrees for full 10 seconds 5b. Right Arm: 0 - No drift; arm holds 90 (or 45) degrees for full 10 seconds 6a. Left Le - No drift; leg holds 30-degree position for full 5 seconds 6b. Right Le - No drift; leg holds 30-degree position for full 5 seconds 7. Limb Ataxia: 0 - Absent 8. Sensory: 0 - Normal; no sensory loss 9. Best Language: 0 - No aphasia; normal 10. Dysarthria: 0 - Normal 11. Extinction and Inattention: 0 - No abnormality Total: 1
== END 2025-04-18 16:23 | disposition home or self-care (01) ==
PROVIDERS: Emergency Provider Emergency Medicine; Visit Provider Emergency Medicine
DX: F41.1 Generalized anxiety disorder (principal); F25.0 Schizoaffective disorder, bipolar type; R20.2 Paresthesia of skin; F17.210 Nicotine dependence, cigarettes, uncomplicated
CPT/HCPCS: 70450; 70486; 70496; 70498; 71045; 80048; 80076; 82962; 84484; 85025; 85610; 85730; 93005; 96374; 96375; 99285; Q9967; A4216; J2405